=== PATIENT | female | born 1970 | race Caucasian/White ===

== ENCOUNTER 2018-05-08 15:50 | Outpatient (CLI) | payer BC ==
[~2018-05-08] VITALS: Ht 172.7 cm; Wt 129.7 kg
[2018-05-08] MEDS ORDERED: MULT-141 PO (15:52)
[2018-05-08] MEDS ORDERED: NORG1TAB14 PO (15:52)
== END 2018-05-08 15:57 | disposition home or self-care (01) ==
LOC: PREOP 15:50
PROVIDERS: ATTEND Obstetrics & Gynecology
DX: Z01.818 Encounter for other preprocedural examination (principal)

== ENCOUNTER 2018-05-11 12:54 | Day surgery (SDC) | payer BC ==
[~2018-05-11] VITALS: Ht 172.7 cm; Wt 129.7 kg
[~2018-05-11 12:54] MED LIST: MULT-141 PO; NORG1TAB14 PO
[2018-05-11] MEDS ORDERED: proPOfol 200 MG/20 ML (DIPRIVAN) VIAL IV ONE ×2 (13:20→14:30)
[2018-05-11] MEDS ORDERED: fentaNYL INJECTION 100 MCG/2 ML AMP ONE ×2 (13:20→14:47)
[2018-05-11] MEDS ORDERED: SEVOFLURANE (ULTANE) 15 ML INHAL SOLN ONE (13:21)
[2018-05-11] MEDS ORDERED: DEXAMETHASONE 10 MG/ML (DECADRON) 1 ML VIAL ONE (13:21)
[2018-05-11] MEDS ORDERED: LIDOCAINE PF 2% 5 ML (XYLOCAINE) VIAL ONE (13:21)
[2018-05-11] MEDS ORDERED: MIDAZOLAM 2 MG/2 ML (VERSED) VIAL ONE (13:21)
[2018-05-11] MEDS ORDERED: ONDANSETRON 4 MG/2 ML (SDV) Z0FRAN ONE (13:21)
[2018-05-11 13:30] VITALS: BP 137/81
[2018-05-11] MEDS ORDERED: LEVOFLOXACIN 250 MG/50 ML IVPB 50 ML ONE (13:46)
[2018-05-11 13:52] LABS: BASOPHILS % (AUTO) 0 % (0-10); EOSINOPHILS # (AUTO) 0.1 10^3/uL (0.0-0.3); EOSINOPHILS % (AUTO) 1 % (0-10); HEMATOCRIT 40 % (35-52); HEMOGLOBIN 12.6 G/DL (11.5-16.0); LYMPHOCYTES # (AUTO) 2.7 X 10^3 (1.0-4.0); LYMPHOCYTES % (AUTO) 38 % (12-44); MEAN CORPUSCULAR HEMOGLOBIN 25 PG (25-34); MEAN CORPUSCULAR HGB CONC 31 G/DL (32-36); MEAN CORPUSCULAR VOLUME 80 FL (80-99); MEAN PLATELET VOLUME 9.6 FL (7.4-10.4); MONOCYTES # (AUTO) 0.4 X 10^3 (0.0-1.0); MONOCYTES % (AUTO) 6 % (0-12); NEUTROPHILS % (AUTO) 55 % (42-75); PLATELET COUNT 331 10^3/uL (130-400); RED BLOOD COUNT 5.05 10^6/uL (4.35-5.85); WHITE BLOOD COUNT 7.2 10^3/uL (4.3-11.0)
[2018-05-11] MEDS ORDERED: LACTATED RINGERS 1,000 ML IV PRN (14:02)
[2018-05-11] MEDS ORDERED: LEVOFLOXACIN 250 MG/50 ML IVPB 50 ML IV ONE (14:15)
--- NOTE | 2018-05-11 14:18 | Progress Note-Pre Operative ---
Pre-Operative Progress Note H&P Reviewed The H&P was reviewed, patient examined and no changes noted. Date Seen by Provider: May 11, 2018 Time Seen by Provider: 14:18 Date H&P Reviewed: May 11, 2018 Time H&P Reviewed: 14:18 Pre-Operative Diagnosis: EVERETTE/menorrhagia/mass ARGELIA ENG MD May 11, 2018 2:18 pm
[2018-05-11] MEDS ORDERED: D5 LR IV SOLUTION 1,000 ML IV SCH (14:19)
--- NOTE | 2018-05-11 14:19 | Progress Note-Post Operative ---
Post-Operative Progess Note Surgeon (s)/Machine Quilt Stuffer (s) Surgeon ARGELIA ENG MD Machine Quilt Stuffer: None Pre-Operative Diagnosis EVERETTE/menorrhagia/mass Post-Operative Diagnosis Same with pathology pending Procedure & Operative Findings Date of Procedure 05/11/18 Procedure Performed/Findings Hysteroscopy with directed biopsy and D&C Anesthesia Type GETA Estimated Blood Loss Estimated blood loss (mL): Minimal Specimens/Packing Specimens Removed Directed endometrial biopsy and endometrial curettings Packing: None required ARGELIA ENG MD May 11, 2018 14:19
[2018-05-11] MEDS ORDERED: OXYC1TAB87 PO (14:21)
--- NOTE | 2018-05-11 14:23 | Discharge Instructions ---
Discharge Instructions Discharge Medications New, Converted or Re-Newed RX: RX on Chart Patient Instructions Patient Instructions: As directed Return to The Hospital For: As directed Activity & Diet Discharge Diet: No Restrictions Activity as Tolerated: No Orders-Post D/C & Referrals Follow Up Appt: Call to make follow up appt. for patient in 2 weeks. Activity: Rest for 24 hours, than as tolerated. Diet: As tolerated-Clear Liquids only if nauseated. May shower or tub bathe as desired. No driving for 24 hours, no alcoholic beverages for 24 hours, and nothing per vagina (no tampons, douching, or intercourse) for 2 weeks. Patient to return to the clinic as soon as possible for: Temperature greater than 101F, Severe Pain, Foul discharge from incision or vagina, Excessive Bleeding (more than a period). ARGELIA ENG MD May 11, 2018 2:23 pm
[2018-05-11] MEDS ORDERED: ONDANSETRON 4 MG/2 ML (SDV) Z0FRAN IVP PRN ×2 (14:30→15:15)
[2018-05-11] MEDS ORDERED: KETOROLAC 30 MG/ML VIAL IVP ONE (14:30)
[2018-05-11] MEDS ORDERED: MEPERIDINE (DEMEROL) INJ 100 MG/ML IM ONE (14:30)
[2018-05-11] MEDS ORDERED: oxyCODONE/APAP 5/325MG (PERCOCET 5) TABLET PO PRN (14:30)
[2018-05-11] MEDS ORDERED: PROMETHAZINE INJ 25 MG/ML (PHENERGAN) AMP IM ONE (14:30)
[2018-05-11] MEDS ORDERED: KETOROLAC 30 MG/ML VIAL ONE (14:50)
[2018-05-11] MEDS ORDERED: HYDROmorphone 2 MG/ML VIAL (DILAUDID) IV ONE (15:15)
[2018-05-11] MEDS ORDERED: morphine INJ 10 MG/ML 1ML (SYR OR VIAL) IVP ONE (15:15)
[2018-05-11] MEDS ORDERED: PROMETHAZINE INJ 25 MG/ML (PHENERGAN) AMP IVP ONE (15:15)
[2018-05-11 15:55] VITALS: BP 129/79
[2018-05-11 16:25] VITALS: BP 122/72
[2018-05-11 16:55] VITALS: BP 151/82
[2018-05-11 17:02] VITALS: BP 151/82
--- NOTE | 2018-05-11 19:24 | OPERATIVE REPORT ---
DATE OF SERVICE: 05/11/2018 PREOPERATIVE DIAGNOSES: Dysfunctional uterine bleeding, menorrhagia and intrauterine mass. POSTOPERATIVE DIAGNOSES: Dysfunctional uterine bleeding, menorrhagia and intrauterine mass with pathology pending. OPERATIVE PROCEDURE: Hysteroscopy with directed biopsy and D and C. OPERATIVE DESCRIPTION: With the patient in the supine position under satisfactory general anesthesia, she was prepped and draped in the usual fashion for vaginal surgery after being repositioned in the dorsal lithotomy position in the [facility]. A weighted speculum was placed in the posterior fornix of vagina; cervix was grasped anteriorly with single tooth tenaculum. The uterus was sounded to 12.25 cm with uterine sound. The cervix was then serially dilated with Cas dilators to a #20 Cas and then a #9 Hegar dilator was the final step in dilation. The hysteroscope was introduced and using LR as a distending medium, the endometrial cavity was examined. There was a polypoid mass near the left tubal ostia and a smaller one near the right. There was also what appeared to be a submucosal mass consistent with a submucosal fibroid emanating from the posterior uterine wall near the right tubal ostium as well. The polypoid tissue from each side was removed under direct vision and containers sales representative biopsies were taken from what appeared to be submucosal mass in the right posterior surface of the uterine cavity. The endometrial cavity was then sharply curettaged in all 4 quadrants to a good uterine cry. This tissue was sent to pathology, appropriately labeled for permanent section. The hysteroscope having been removed, the tenaculum was removed. There was no bleeding from the puncture site. There was minimal bleeding from the cervical os. The hysteroscope had been used to examine the endometrial cavity. After the D and C, there was no remaining abnormal tissue present and there was no significant bleeding. Sponge and needle counts were correct on completion of the procedure. A total of 900 mL of LR was used as distending medium and that much was recovered almost as well. The patient was now uneventfully awakened from her general anesthesia and transferred to recovery room in stable condition with plans for discharge home PAR. Job ID: [id number] DocumentID: [id number] Dictated Date: 05/11/2018 14:56:36 Academic Support Center Director Date: 05/11/2018 19:23:45 Dictated By: ARGELIA ENG MD
--- OUTSIDE RECORDS SUMMARY | 2018-05-12 07:52 | XMS REPORT ---
Author Author [facility] Medical Staff Organization [facility] Address [address] [place], [place] [address] Phone [phone] Care Team Providers Care Lookback Coordinator Name Role Phone SOPHIA SANTOYO APRN PP [phone] Summary purpose TRANSITION OF CARE AUTO GENERATION Chief Complaint and Reason for Visit No authorized Reason for Visit (Admitting Diagnosis) is available for this visit. Problem list No authorized problems tracked for continuity of care are available for this visit. Encounters No authorized problems tracked for encounter diagnoses are available for this visit. Medications No medications recorded for this patient visit Allergies, adverse reactions, alerts Allergen Category Ingredient Status Reaction Severity Onset Penicillins Drug Allergy Penicillins Confirmed or Verified Immunizations No immunizations recorded for this patient visit Relevant diagnostic tests and/or laboratory data No authorized results are available for this patient visit History of procedures No procedures recorded for this patient visit. Functional status No functional or cognitive status observations are available for this visit. Vital signs No authorized vital signs are available for this visit. Social history No Social History or smoking status observations were recorded for this visit. ( Unknown if ever smoked.) Treatment Plan No treatment plan text is available for this visit. Hospital discharge instructions No discharge instruction text is available for this visit.
--- OUTSIDE RECORDS SUMMARY | 2018-05-12 07:52 | XMS REPORT ---
Author [facility] [employer] [facility] Medical Staff Organization [facility] Address [address], [place] [address] Phone [phone] Care Team Providers Care Pastoral Counselor Name Role Phone SOPHIA ASNTOYO APRN PP [phone] Summary purpose TRANSITION OF CARE AUTO GENERATION [...] this patient visit Allergies, adverse reactions, alerts No allergy information is available for this patient. Immunizations No immunizations recorded for this patient visit Relevant diagnostic tests and/or laboratory data RESULTS Routine Urinalysis [id number]:26:00 Result Normal Range Units Color YELLOW Clarity Cloudy Specific [place] 1.008 pH 6.0 4.5-8.0 Glucose NEGATIVE Bilirubin NEGATIVE Ketones NEGATIVE Protein NEGATIVE Urobilinogen 0.2 0-0.2 E.U./dL Nitrites NEGATIVE Blood TRACE Leukocytes NEGATIVE WBCs 0-5 RBCs No RBC's Seen. Squamous Epithelial 1+ Bacteria Rare Amount Body Fluid :26:00 Result Normal Range Units pH 6.0 4.5-8.0 History of procedures No procedures recorded for [...]
--- OUTSIDE RECORDS SUMMARY | 2018-05-12 07:52 | XMS REPORT ---
Author [facility] [employer] [facility] Medical Staff Organization [facility] Address [address], [place] [address] Phone [phone] Care Team Providers Care Habilitation Training Specialist Name Role Phone SOPHIA SANTOYO APRN PP [phone] Summary purpose TRANSITION OF CARE AUTO GENERATION [...] tests and/or laboratory data RESULTS Routine Urinalysis [id number]:30:00 Result Normal Range Units Color YELLOW Clarity Hazy Specific [place] 1.010 1.003-1.035 pH 6.0 4.5-8.0 Glucose NEGATIVE Bilirubin NEGATIVE Ketones NEGATIVE Protein NEGATIVE Urobilinogen 0.2 0-0.2 E.U./dL Nitrites NEGATIVE Blood TRACE Leukocytes 1+ WBCs 5-10 RBCs 0-5 Squamous Epithelial 2+ Bacteria Occasional Chemistry [id number]:18:00 Result Normal Range Units Sodium 137 134-145 mEq/l Potassium 4.0 3.5-5.1 mEq/l Chloride 105 98-107 mEq/l CO2 24.9 22-28 mEq/l Glucose 94 70-105 mg/dl BUN 11 7-18 mg/dl Creatinine 0.92 0.6-1.0 mg/dl Triglycerides H 168 35-160 mg/dl Cholesterol 183 120-200 mg/dl HDL Cholesterol 42 39-96 mg/dl VLDL Cholesterol 34 5-40 mg/dl LDL Cholesterol H 126 30-100 mg/dl Calcium L 8.1 8.4-10.2 mg/dl TP - Total Protein 6.9 6.0-8.3 g/dl Albumin L 3.0 3.5-5 g/dl Bilirubin - Total 0.3 0.1-1.0 mg/dl AST 20 10-42 IU/L ALT 20 12-65 IU/L ALP H 74 25-72 IU/L Osmolality L 273.0 280-300 mOsm/L Albumin/Globulin Ratio 0.8 0-8 Anion GAP L 7.1 8-16 BUN/Creatinine Ratio 12.0 10-20 Estimated GFR 66 >=60 mL/min/1.7 Hematology :18:00 Result Normal Range Units WBC 6.9 4.8-10.8 103/uL RBC 4.6 4.2-5.4 106/uL HGB L 11.3 12.0-16.0 g/dl HCT 37.3 36.9-47.0 % MCV L 80.9 81-99 FL MCH L 24.5 27-31 pg MCHC L 30.3 33-37 g/dl RDW 14.0 11.5-15.5 % PLT 304 130-400 103/uL MPV 10.2 7.3-10.4 FL Body Fluid :30:00 Result Normal Range Units pH 6.0 4.5-8.0 Radiology Results :18:00 Result Normal Range Units MPV 10.2 7.3-10.4 FL History of procedures No procedures recorded for [...]
--- OUTSIDE RECORDS SUMMARY | 2018-05-12 07:53 | XMS REPORT ---
Author [facility] [employer] [facility] Medical Staff Organization [facility] Address [address], [place] [address] Phone [phone] Care Team Providers Care Traffic Line Painter Name Role Phone SOPHIA SANTOYO APRN PP [phone] Summary purpose TRANSITION OF CARE AUTO GENERATION [...] tests and/or laboratory data RESULTS Routine Urinalysis [id number]:00:00 Result Normal Range Units Color YELLOW Clarity Hazy Specific [place] 1.024 Refractometer Result pH 6.0 4.5-8.0 Glucose NEGATIVE Bilirubin NEGATIVE Ketones NEGATIVE Protein NEGATIVE Urobilinogen 0.2 0-0.2 E.U./dL Nitrites NEGATIVE Blood TRACE Leukocytes NEGATIVE WBCs 0-5 RBCs 0-5 Squamous Epithelial 2+ Bacteria 1+ Mucous 3+ Chemistry [id number]:00:00 Result Normal Range Units Sodium 142 134-145 mEq/l Potassium 4.1 3.5-5.1 mEq/l Chloride 105 98-107 mEq/l CO2 26.7 22-28 mEq/l Glucose 94 70-105 mg/dl BUN 10 7-18 mg/dl Creatinine 0.92 0.6-1.0 mg/dl Triglycerides H 210 35-160 mg/dl Cholesterol 169 120-200 mg/dl HDL Cholesterol L 37 39-96 mg/dl VLDL Cholesterol H 42 5-40 mg/dl LDL Cholesterol H 110 30-100 mg/dl Calcium 8.6 8.4-10.2 mg/dl TP - Total Protein 7.0 6.0-8.3 g/dl Albumin L 3.2 3.5-5 g/dl Bilirubin - Total 0.5 0.1-1.0 mg/dl AST 14 10-42 IU/L ALT 16 12-65 IU/L ALP H 80 25-72 IU/L Osmolality 281.9 280-300 mOsm/L Albumin/Globulin Ratio 0.8 0-8 Anion GAP 10.3 8-16 BUN/Creatinine Ratio 10.9 10-20 Estimated GFR 67 >=60 mL/min/1.7 Hematology :00:00 Result Normal Range Units WBC 6.5 4.8-10.8 103/uL RBC 4.9 4.2-5.4 106/uL HGB L 11.6 12.0-16.0 g/dl HCT 37.4 36.9-47.0 % MCV L 76.6 81-99 FL MCH L 23.8 27-31 pg MCHC L 31.0 33-37 g/dl RDW 14.9 11.5-15.5 % PLT 324 130-400 103/uL MPV 10.4 7.3-10.4 FL Neutro % 63.8 40-70 % Lymph % 26.8 20-40 % Moffat % 7.4 0-10.0 % Eos % 1.5 0-7.0 % Baso % 0.5 0-2 % Neutro # 4.1 1.5-7.5 103/uL Lymph # 1.7 0.9-4.0 103/uL Moffat # 0.5 0-0.8 103/uL Eos # 0.1 0-0.6 103/uL Baso # 0.0 0-0.1 103/uL Body Fluid :00:00 Result Normal Range Units pH 6.0 4.5-8.0 Thyroid Testing :00:00 Result Normal Range Units TSH 2.71 0.36-3.74 uIU/mL Free T4 1.00 0.78-1.34 ng/dl Radiology Results :00:00 Result Normal Range Units MPV 10.4 7.3-10.4 FL History of procedures No procedures [...]
--- OUTSIDE RECORDS SUMMARY | 2018-05-12 07:53 | XMS REPORT ---
Author Author [facility] [facility] Medical Staff Organization [facility] [employer] [facility] Address [address], [place] [address] Phone [phone] Care Team Providers Care Regional Forester Name Role Phone SOPHIA SANTOYO APRN PP [phone] Summary purpose TRANSITION OF CARE AUTO GENERATION Chief Complaint and Reason for Visit Admit Diagnosis 1 HEMATURIA NOS Problem list No authorized problems tracked for [...] tests and/or laboratory data RESULTS Routine Urinalysis [id number]:45:00 Result Normal Range Units Color YELLOW Clarity Cloudy Specific [place] 1.020 1.003-1.035 pH 6.5 4.5-8.0 Glucose NEGATIVE Bilirubin NEGATIVE Ketones NEGATIVE Protein NEGATIVE Urobilinogen 0.2 0-0.2 E.U./dL Nitrites POSITIVE Blood 3+ Leukocytes NEGATIVE WBCs 20-30 RBCs 10-20 Squamous Epithelial 4+ Bacteria 4+ Routine Cultures [id number]:08:00 Urine Culture Plate Date and Time 12/25/2014 19:08 SourceURINE CULTURE REPORT >100,000 colonies/ml Gram Negative Rods ID & Sensitivity to follow Release Date/Time: 12/26/2014 07:23 ORGID #1:>100,000 colonies/ml ESCHERICHIA COLI Release Date/Time: 12/27/2014 07:39 Sensitivity #1: ESCCOL AMPICILLIN <=8S AMOX CLAV<=8/4 S AZTREONAM<=8S CEFTRIAXONE<=8S CEFTAZIDIME<=1S CEFOTAXIME <=2S CEFOXITIN<=8S CEFAZOLIN<=8S CIPROFLOXACIN<=1S CEFEPIME <=8S CEFUROXIME <=4S ERTAPENEM<=2S NITROFURANTOIN <=32 S GENTAMICIN <=4S AMPICILLIN SULBACTAM <=8/4 S IMIPENEM <=4S LEVOFLOXACIN <=2S MEROPENEM<=4S TRIMETHSULFA <=2/38S TETRACYCLINE <=4S PIPTAZO<=16 S Body Fluid [id number]:45:00 Result Normal Range Units pH 6.5 4.5-8.0 History of procedures Procedure Code Code Type Description Date Performed Performing Physician 46319 CPT-4 URINALYSIS, AUTO W/SCOPE 12-25-2014 SOPHIA SANTOYO 49966 CPT-4 URINE CULTURE/COLONY COUNT 12-25-2014 SOPHIA SANTOYO 76270 CPT-4 CULTURE AEROBIC IDENTIFY 12-25-2014 SOPHIA SANTOYO 60202 CPT-4 MICROBE SUSCEPTIBLE, DEMETRA 12-25-2014 SOPHIA SANTOYO Functional status No functional or cognitive status [...]
--- OUTSIDE RECORDS SUMMARY | 2018-05-12 07:53 | XMS REPORT ---
Author Author [facility] Medical Staff Organization [facility] [employer] [facility] Address [address], [place] [address] Phone [phone] Care Team Providers Care Labor And Delivery Nurse Name Role Phone SOPHIA SANTOYO APRN PP [phone] Summary purpose TRANSITION OF CARE AUTO GENERATION [...] recorded for this patient visit. Functional status Functional Status Finding Observation Time Abdomen Appearance obese : Abdomen soft : Bowel Sounds present : Quality sym/unlabored : Cough absent : Secretions no : Breath Sounds RUL clear : Breath Sounds RML clear : Breath Sounds RLL clear :00 Breath Sounds MARY clear : Breath Sounds LLL clear : Airway natural : Oxygen no [id number]:00 Temp >100.4 no : Temp <96.8 no : Chills with rigors no : HR > 90bpm no :00 Respirations > 20 no : Systolic <90 no [id number]:00 headache stiff neck no Nursing Note Discharge instructions given to pt. She verbalized understanding. Pt amb to car with s.o. Vital signs Type Value Date Respiration Rate 18breaths per minute Pulse 89beats per minute Oxygen Saturation 100% : BP Systolic 111mmHg BP Diastolic 73mmHg Temperature 99.7F Social history No Social History or smoking status observations were recorded for this visit. ( Unknown if ever smoked.) Treatment Plan No treatment plan text is available for this visit. Hospital discharge instructions Dismissal Condition fair Disposition on DC home DC Inst/Educ Give yes Med/Side Effects Rev yes Flu Vac none
--- OUTSIDE RECORDS SUMMARY | 2018-05-12 07:53 | XMS REPORT ---
Author Author [facility] [facility] Medical Staff Organization [facility] [employer] [facility] Address [address] [place], [place] [address] Phone [phone] Summary purpose TRANSITION OF CARE AUTO GENERATION [...] Relevant diagnostic tests and/or laboratory data RESULTS Radiology Results [id number]:11:00 Bilateral Screen Digital Mammo PACs Image DATE OF EXAM: Jul 23 2015 [facility] 0845-BILAT SCREEN DIG MAMMO : RADIOLOGY REPORT DATE OF SERVICE: 07/23/15 HISTORY:Screening exam. BILATERAL SCREENING DIGITAL MAMMOGRAMOGRAPY WITH iCAD SECONDLOOK 7.2-H+ 0750 HOURS There are a few scattered fibroglandular densities. There are no masses or grouped microcalculi. There is no distortion or asymmetry.The appearance is stable when compared with 07/22/2014 and 06/28/2013. IMPRESSION:Negative mammograms BI-RADS I. MD OLIVER Aranda/elke 07/27/2015 16:54:00 / 07/27/2015 17:18:13 cc:Sophia Zuñiga APRN This document has been electronically Signed by: On: DATE OF EXAM: Jul 23 2015 [facility] 0845-BILAT SCREEN DIG MAMMO : RADIOLOGY REPORT DATE OF SERVICE: 07/23/15 HISTORY:Screening exam. BILATERAL SCREENING DIGITAL MAMMOGRAMOGRAPY WITH iCAD SECONDLOOK 7.2-H+ 0750 HOURS There are a few scattered fibroglandular densities. There are no masses or grouped microcalculi. There is no distortion or asymmetry.The appearance is stable when compared with 07/22/2014 and 06/28/2013. IMPRESSION:Negative mammograms BI-RADS I. MD OLIVER Aranda/elke 07/27/2015 16:54:00 / 07/27/2015 17:18:13 cc:Sophia Zuñiga APRN This document has been electronically Signed by: YENY STOUT MD On: Jul 28 2015 12:11P Result Amended on 2015-07-28 at 12:11:58. Previous status was [place]. History of procedures Procedure Code Code Type Description Date Performed Performing Physician 31601 CPT-4 COMP SCREEN MAMMOGRAM ADD-ON 07-23-2015 SOPHIA ZUÑIGA 38375 CPT-4 MAMMOGRAM, SCREENING 07-23-2015 SOPHIA ZUÑIGA Functional status No functional or cognitive status [...]
--- OUTSIDE RECORDS SUMMARY | 2018-05-12 07:53 | XMS REPORT ---
Author Author [facility] [employer] [facility] Medical Staff Organization [facility] Address [address], [place] [address] Phone [phone] Care Team Providers Care Broadcast Producer Name Role Phone SOPHIA SANTOYO APRN PP [phone] Summary purpose TRANSITION OF CARE AUTO GENERATION [...] tests and/or laboratory data RESULTS Routine Urinalysis [id number]:45:00 Result Normal Range Units Color YELLOW Clarity Cloudy Specific [place] 1.020 1.003-1.035 pH 6.5 4.5-8.0 Glucose NEGATIVE Bilirubin NEGATIVE Ketones NEGATIVE Protein NEGATIVE Urobilinogen 0.2 0-0.2 E.U./dL Nitrites POSITIVE Blood 3+ Leukocytes NEGATIVE WBCs 20-30 RBCs 10-20 Squamous Epithelial 4+ Bacteria 4+ Body Fluid [id number]:45:00 Result Normal Range Units pH 6.5 4.5-8.0 History of procedures No procedures recorded [...]
--- OUTSIDE RECORDS SUMMARY | 2018-05-12 07:53 | XMS REPORT ---
Author Author [facility] Medical Staff Organization [facility] [employer] [facility] Address [address] [place], [place] [address] Phone [phone] Care Team Providers Care Generation Manager Name Role Phone NATANAEL ARCEO, SOPHIA PP [phone] Summary purpose TRANSITION OF CARE AUTO GENERATION [...] tests and/or laboratory data RESULTS Radiology Results [id number]:53:00 LUMBAR SPINE XRAY - 5V PACs Image DATE OF EXAM: 2015 RAD 1050-LUMBAR SPINE XRAY-5 VIEW : RADIOLOGY REPORT DATE OF SERVICE:10/05/15 HISTORY:Low back pain with right radiculopathy. LUMBAR SPINE 5 VIEWS 1647 HOURS The lumbar vertebrae are normal in height and alignment. There are no fractures. There is no spondylolysis or spondylolisthesis. There is mild disc narrowing with osteophyte formation at L3-L4. Minimal degenerative facet change is present at L5-S1. IMPRESSION:Mild midlumbar degenerative disc change and lower lumbar facet arthrosis. MD OLIVER Aranda/pb10/05/2015 18:59:00 / 10/05/2015 21:30:09 cc:Sophia Santoyo APRN This document has been electronically Signed by: On: DATE OF EXAM: 2015 RAD 1050-LUMBAR SPINE XRAY-5 VIEW : RADIOLOGY REPORT DATE OF SERVICE:10/05/15 HISTORY:Low back pain with right radiculopathy. LUMBAR SPINE 5 VIEWS 1647 HOURS The lumbar vertebrae are normal in height and alignment. There are no fractures. There is no spondylolysis or spondylolisthesis. There is mild disc narrowing with osteophyte formation at L3-L4. Minimal degenerative facet change is present at L5-S1. IMPRESSION:Mild midlumbar degenerative disc change and lower lumbar facet arthrosis. Momo Weathers MD MWD/pb10/05/2015 18:59:00 / 10/05/2015 21:30:09 cc:Sophia Santoyo APRN This document has been electronically Signed by: MOMO WEATHERS MD On: 20159:[id number] Result Amended on 2015-10-06 at 09:53:37. Previous status was [place]. History of procedures Procedure Code Code Type Description Date Performed Performing Physician 53807 CPT-4 X-RAY EXAM L-2 SPINE 4/>VWS 10-05-2015 SOPHIA SANTOYO Functional status No functional or [...]
--- OUTSIDE RECORDS SUMMARY | 2018-05-12 07:53 | XMS REPORT ---
Author Author [facility] Medical Staff Organization [facility] [employer] [facility] Address [address], [place] [address] Phone [phone] Care Team Providers Care Professor Of Kinesiology Name Role Phone SOPHIA SANTOYO APRN PP [phone] Summary purpose TRANSITION OF CARE AUTO GENERATION Chief Complaint and Reason for Visit Admit Diagnosis 1 HYPERLIPIDEMIA NEC/NOS Problem list No authorized problems tracked for [...] tests and/or laboratory data RESULTS Routine Urinalysis [id number]:00:00 Result Normal Range Units Color YELLOW Clarity Hazy Specific [place] 1.024 Refractometer Result pH 6.0 4.5-8.0 Glucose NEGATIVE Bilirubin NEGATIVE Ketones NEGATIVE Protein NEGATIVE Urobilinogen 0.2 0-0.2 E.U./dL Nitrites NEGATIVE Blood TRACE Leukocytes NEGATIVE WBCs 0-5 RBCs 0-5 Squamous Epithelial 2+ Bacteria 1+ Mucous 3+ Chemistry [id number]:00:00 Result Normal Range Units Sodium 142 134-145 [...] 40-70 % Lymph % 26.8 20-40 % Hart % 7.4 0-10.0 % Eos % 1.5 0-7.0 % Baso % 0.5 0-2 % Neutro # 4.1 1.5-7.5 103/uL Lymph # 1.7 0.9-4.0 103/uL Hart # 0.5 0-0.8 103/uL Eos # 0.1 0-0.6 103/uL Baso # 0.0 0-0.1 103/uL Body Fluid [id number]:00:00 Result Normal Range Units pH 6.0 4.5-8.0 Thyroid Testing :00:00 Result Normal Range Units TSH 2.71 0.36-3.74 uIU/mL Free T4 1.00 0.78-1.34 ng/dl Radiology Results :00:00 Result Normal Range Units MPV 10.4 7.3-10.4 FL History of procedures Procedure Code Code Type Description Date Performed Performing Physician 69439 CPT-4 LIPID PANEL 12-31-2014 SOPHIA SANTOYO 65928 CPT-4 COMPLETE CBC W/AUTO DIFF WBC 12-31-2014 SOPHIA SANTOYO 47593 CPT-4 COMPREHEN METABOLIC PANEL 12-31-2014 SOPHIA SANTOYO 62630 CPT-4 ASSAY OF FREE THYROXINE 12-31-2014 SOPHIA SANTOYO 95300 CPT-4 ASSAY THYROID STIM HORMONE 12-31-2014 SOPHIA SANTOYO 77519 CPT-4 URINALYSIS, AUTO W/SCOPE 12-31-2014 SOPHIA SANTOYO Functional status No functional or [...]
--- OUTSIDE RECORDS SUMMARY | 2018-05-12 07:53 | XMS REPORT ---
Author Author [facility] [place] [facility] Medical Staff Organization [facility] Address [address], [place] [address] Phone [phone] Care Team Providers Care Manager Finance Name Role Phone SOPHIA SANTOYO APRN PP [phone] Summary purpose TRANSITION OF CARE AUTO GENERATION [...] tests and/or laboratory data RESULTS Routine Urinalysis [id number]:26:00 Result Normal Range Units Color YELLOW Clarity Cloudy Specific [place] 1.008 pH 6.0 4.5-8.0 Glucose NEGATIVE Bilirubin NEGATIVE Ketones NEGATIVE Protein NEGATIVE Urobilinogen 0.2 0-0.2 E.U./dL Nitrites NEGATIVE Blood TRACE Leukocytes NEGATIVE WBCs 0-5 RBCs No RBC's Seen. Squamous Epithelial 1+ Bacteria Rare Amount Routine Cultures [id number]:26:00 Result Normal Range Units Cervical/ Vaginal/ Urethral See Comments Plate Date and Time 09/21/2015 16:26 SourceVAGINAL CULTURE REPORT Small Amount Gram Positive Cocci ID to follow. Release Date/Time: 09/22/2015 12:05 GRAM STAIN 1+ Gram Positive [place] 0-5 Squamous Epithelial Cells Release Date/Time: 09/22/2015 13:32 ORGID #1:Small Amount STREPTOCOCCUS AGALACTIAE - (GROUP B) Release Date/Time: 09/22/2015 12:05 Body Fluid [id number]:26:00 Result Normal Range Units pH 6.0 4.5-8.0 Reference Lab (Sendout) [id number]:26:00 Result Normal Range Units Trichomonas NOT DETECTED NOT DETECTED Gardnerella NOT DETECTED NOT DETECTED Shelley NOT DETECTED NOT DETECTED TEST PERFORMED AT: [facility] [address] [place] [address] YENNI MAZA DO,MPH History of procedures Procedure Code Code Type Description Date Performed Performing Physician 23337 CPT-4 SMEAR GRAM STAIN 09-21-2015 SOPHIA SANTOYO 12808 CPT-4 CULTURE OTHR SPECIMN AEROBIC 09-21-2015 SOPHIA SANTOYO 69207 CPT-4 SHELLEY DNA DIR PROBE 09-21-2015 SOPHIA SANTOYO 67779 CPT-4 ESPINOSA VAG DNA DIR PROBE 09-21-2015 SOPHIA SANTOYO 36161 CPT-4 TRICHOMONAS VAGIN DIR PROBE 09-21-2015 SOPHIA SANTOYO 23865 CPT-4 URINALYSIS AUTO W/SCOPE 09-21-2015 SOPHIA SANTOYO 43305 CPT-4 CULTURE TYPE IMMUNOLOGIC 09-21-2015 SOPHIA SANTOYO Functional status No functional or [...]
--- OUTSIDE RECORDS SUMMARY | 2018-05-12 07:53 | XMS REPORT ---
Author Author [facility] Medical Staff Organization [facility] Address [address], [place] [address] Phone [phone] Care Team Providers Care Interior Systems Carpenter Name Role Phone SOPHIA SANTOYO APRN PP [phone] Summary purpose TRANSITION OF CARE AUTO GENERATION [...] tests and/or laboratory data RESULTS Routine Urinalysis [id number]:30:00 Result Normal Range Units Color YELLOW Clarity Hazy Specific [place] 1.010 1.003-1.035 pH 6.0 4.5-8.0 Glucose NEGATIVE Bilirubin NEGATIVE Ketones NEGATIVE Protein NEGATIVE Urobilinogen 0.2 0-0.2 E.U./dL Nitrites NEGATIVE Blood TRACE Leukocytes 1+ WBCs 5-10 RBCs 0-5 Squamous Epithelial 2+ Bacteria Occasional Routine Cultures [id number]:23:00 Urine Culture Plate Date and Time 02/08/2016 12:23 SourceURINE CULTURE REPORT 40,000 colonies/ml Mixed Gram Pos [place] Release Date/Time: 02/09/2016 07:08 CULTURE REPORT >100,000 colonies/ml Mixed Gram Pos [facility] Release Date/Time: 02/10/2016 07:46 Chemistry [id number]:18:00 Result Normal Range Units Sodium 137 134-145 [...] 10-20 Estimated GFR 66 >=60 mL/min/1.7 Hematology [id number]:18:00 Result Normal Range Units WBC 6.9 4.8-10.8 103/uL RBC 4.6 4.2-5.4 106/uL HGB L 11.3 12.0-16.0 g/dl HCT 37.3 36.9-47.0 % MCV L 80.9 81-99 FL MCH L 24.5 27-31 pg MCHC L 30.3 33-37 g/dl RDW 14.0 11.5-15.5 % PLT 304 130-400 103/uL MPV 10.2 7.3-10.4 FL Body Fluid [id number]:30:00 Result Normal Range Units pH 6.0 4.5-8.0 Radiology Results [id number]:18:00 Result Normal Range Units MPV 10.2 7.3-10.4 FL History of procedures Procedure Code Code Type Description Date Performed Performing Physician 29971 CPT-4 LIPID PANEL 02-08-2016 SOPHIA SANTOYO 73633 CPT-4 COMPREHEN METABOLIC PANEL 02-08-2016 SOPHIA SANTOYO 25300 CPT-4 COMPLETE CBC, AUTOMATED 02-08-2016 SOPHIA SANTOYO 91227 CPT-4 URINALYSIS, AUTO W/SCOPE 02-08-2016 SOPHIA SANTOYO 92523 CPT-4 URINE CULTURE/COLONY COUNT 02-08-2016 SOPHIA SANTOYO Functional status No functional or [...]
--- OUTSIDE RECORDS SUMMARY | 2018-05-12 07:53 | XMS REPORT ---
Author Author [facility] Medical Staff Organization [facility] Address [address], [place] [address] Phone [phone] Care Team Providers Care Sports Team Manager Name Role Phone SOPHIA SANTOYO APRN PP [phone] Summary purpose TRANSITION OF CARE AUTO GENERATION [...] for this patient visit History of procedures Procedure Code Code Type Description Date Performed Performing Physician 49998 CPT-4 EMERGENCY DEPT VISIT 09-27-2015 SUPA FLORES 52280 CPT-4 EMERGENCY DEPT VISIT 09-27-2015 SUPA FLORES Functional status Functional Status Finding Observation Time Abdomen Appearance obese 36-00-003132:00 Abdomen soft : Bowel Sounds present 76-36-222731: Quality sym/unlabored : Cough absent : Secretions no [id number]:00 Breath Sounds RUL clear : Breath Sounds RML clear :00 Breath Sounds RLL clear :00 Breath Sounds MARY clear :00 Breath Sounds LLL clear [id number]: Airway natural [id number]:00 Oxygen no [id number]:00 Temp >100.4 no : Temp <96.8 no 91-32-619869:00 Chills with rigors no : HR > 90bpm no Respirations > 20 no : Systolic <90 no : headache stiff neck no Nursing Note Discharge instructions given to pt. She verbalized understanding. Pt amb to car with s.o. Vital signs Type Value Date Respiration Rate 18breaths per minute Pulse 89beats per minute Oxygen Saturation 100% : BP Systolic 111mmHg :00 BP Diastolic 73mmHg : Temperature 99.7F : Social history No Social History or smoking status observations were recorded for this visit. ( Unknown if ever smoked.) Treatment Plan No treatment plan text is available for this visit. Hospital discharge instructions Dismissal Condition fair Disposition on DC home DC Inst/Educ Give yes Med/Side Effects Rev yes Flu Vac none
--- OUTSIDE RECORDS SUMMARY | 2018-05-12 07:54 | XMS REPORT | Clinical Summary ---
Author Author Admin, MINO Organization [facility] Address Unknown Phone Unavailable Allergies, Adverse Reactions, Alerts Allergy Name Reaction Description Start Date Severity Status Provider PENICILLIN Critical Active Jimena ROWLEY Conditions or Problems Problem Name Problem Code Onset Date Status Entry Date Provider Comment Standard Description Annotate SINUSITIS 473.9 Inactive Eber Parish MD Unspecified sinusitis (chronic) HYPERLIPIDEMIA 272.4 Active Jessica Crandall RN Other and unspecified hyperlipidemia SINUSITIS, ACUTE 461.9 Resolved Eber Parish MD Acute sinusitis, unspecified OBESITY 278.00 Active Eber Parish MD Obesity , unspecified BREAST PAIN 611.71 Active Eber Parish MD Mastodynia SNORING 786.09 Active Eber Parish MD Other dyspnea and respiratory abnormality HEALTH SCREENING V70.0 Active Eber Parish MD Routine general medical examination at a health care facility OBSTRUCTIVE SLEEP APNEA 327.23 Active Eber Parish MD Obstructive sleep apnea (adult) (pediatric) SINUSITIS 473.9 Resolved Eber Parish MD Unspecified sinusitis (chronic) Cellulitis 682.9 Resolved Eber Parish MD Cellulitis and abscess of unspecified sites Chest pain 786.50 Active Eber Parish MD Unspecified chest pain Diarrhea 787.91 Active Eber Parish MD Diarrhea SINUSITIS ICD-473.9 Inactive Eber Parish MD SINUSITIS, ACUTE ICD-461.9 Inactive Eber Parish MD SINUSITIS ICD-473.9 Inactive Eber Parish MD Cellulitis ICD-682.9 Inactive Eber Parish MD Medication List Medication Instructions Start Date Stop Date Generic Name NDC Status Provider Patient Instruction CLARITIN 10 MG TABS Take one by mouth daily as needed LORATADINE 89063056272 Active Eber Parish MD Active MINOCYCLINE HCL 100 MG CAP 1 twice a day MINOCYCLINE HCL 15475882116 No Longer Active Eber Parish MD Active CITRACAL MAXIMUM 315-250 MG-UNIT TABS one tablet daily CALCIUM CITRATE- VITAMIN D 09327495700 Active Eber Parish MD Active CENTRUM ULTRA WOMENS TABS one tablet daily MULTIPLE VITAMINS-MINERALS 06321638924 Active Eber Parish MD Active ZITHROMAX 250 MG TAB 2 po today, then 1 po q days 2-5 AZITHROMYCIN 00970254929 No Longer Active Gregory Lechuga MD Active ADVIL CONGESTION RELIEF 10-200 MG TABS Take 1 tablet every 4 hours PRN PHENYLEPHRINE-IBUPROFEN 56299262091 Active Gregory Lechuga MD Active TRANSDERM-SCOP 1.5 MG PT72 apply one patch to clean skin every 72 hours SCOPOLAMINE BASE 56771989385 No Longer Active Eber Parish MD Active SULFAMETHOXAZOLE-TMP DS 800-160 MG TABS Take one (1) tablet by mouth twice a day SULFAMETHOXAZOLE-TRIMETHOPRIM 08881673284 No Longer Active Jimena ROWLEY Active BACTRIM DS 800-160 MG TAB 1 tab by mouth twice daily TRIMETHOPRIM-SULFAMETHOXAZOLE 36382806761 No Longer Active Jessica Karley RN Active GUAIFENESIN-CODEINE 100-10 MG/5ML SYRP 1 tsp PO q6h PRN cough GUAIFENESIN-CODEINE 46908335806 No Longer Active Jessica Lock RN Active TYLENOL 8 HOUR 650 MG CR-TABS ONE TABLET THREE TIMES A DAY ACETAMINOPHEN 34839850961 No Longer Active Eber Parish MD Active CLARITIN 10 MG CAPS ONE CAPSULE DAILY LORATADINE 80923687472 No Longer Active Eber Parish MD Active CLARITIN 10 MG CAPS ONE CAPSULE DAILY CLARITIN 10 MG CAPS LORATADINE Inactive TYLENOL 8 HOUR 650 MG CR-TABS ONE TABLET THREE TIMES A DAY TYLENOL 8 HOUR 650 MG CR-TABS ACETAMINOPHEN Inactive GUAIFENESIN-CODEINE 100-10 MG/5ML SYRP 1 tsp PO q6h PRN cough GUAIFENESIN-CODEINE 100-10 MG/5ML SYRP 491435 GUAIFENESIN-CODEINE Inactive BACTRIM DS 800-160 MG TAB 1 tab by mouth twice daily BACTRIM DS 800-160 MG TAB TRIMETHOPRIM-SULFAMETHOXAZOLE Inactive SULFAMETHOXAZOLE-TMP DS 800-160 MG TABS Take one (1) tablet by mouth twice a day SULFAMETHOXAZOLE-TMP DS 800-160 MG TABS SULFAMETHOXAZOLE-TRIMETHOPRIM Inactive TRANSDERM-SCOP 1.5 MG PT72 apply one patch to clean skin every 72 hours TRANSDERM-SCOP 1.5 MG PT72 SCOPOLAMINE BASE Inactive MINOCYCLINE HCL 100 MG CAP 1 twice a day MINOCYCLINE HCL 100 MG CAP 777454 MINOCYCLINE HCL Inactive ZITHROMAX 250 MG TAB 2 po today, then 1 po q days 2-5 ZITHROMAX 250 MG TAB 9683246 AZITHROMYCIN Inactive Advance Directives Directive Description Start Date PERMISSION TO SHARE Vital Signs Date Name Value Unit Range Description blood pressure, diastolic - 8462-4 80 mm[Hg] BP hunter blood pressure, systolic - 8480-6 122 mm[Hg] BP sys height E&M - 8302-2 68 [in_us] Bdy height pulse rate E&M - 8867-4 88 /min Heart rate temperature E&M 97.8 [degF] Body temperature weight E&M - 3141-9 283.8 [lb_av] Weight Measured blood pressure, diastolic - 8462-4 82 mm[Hg] BP hunter blood pressure, systolic - 8480-6 118 mm[Hg] BP sys height E&M - 8302-2 68.0 [in_us] Bdy height pulse rate E&M - 8867-4 101 /min Heart rate temperature E&M 97.6 [degF] Body temperature weight E&M - 3141-9 282 [lb_av] Weight Measured Encounters Code Encounter Date Provider Facility CPT-98211 Level 3 Est. Patient 14:30:41 POLITICAL CONSULTANT Eber Parish MD [facility] CPT-33715 Level 3 Est. Patient 10:47:41 POLITICAL CONSULTANT Gregory Lechuga MD [facility] CPT-68367 Level 3 Est. Patient 15:24:42 CDT Eber Parish MD [facility] CPT-05479 Level 4 Est. Patient 10:49:34 CDT Eber Parish MD [facility] CPT-60997 Level 3 Est. Patient 08:49:14 POLITICAL CONSULTANT Dani QUINTANILLA [facility] CPT-42463 Level 3 Est. Patient 17:37:54 CDT Eber Parish MD [facility] Procedures Code Procedure Name Date Entry Date Standard Description CPT-13683 EKG Trac and Interp 14:33:45 CDT CPT-14952 Chest 2V Frontal and Lat 14:33:45 CDT
--- OUTSIDE RECORDS SUMMARY | 2018-05-12 07:54 | XMS REPORT | Clinical Summary ---
Author Author Admin, MINO Organization [facility] Address Unknown Phone Unavailable Allergies, Adverse Reactions, Alerts Allergy Name Reaction Description Start Date Severity Status Provider PENICILLIN Critical Active Jimena ROWLEY Conditions or Problems Problem Name Problem Code Onset Date Status Entry Date Provider Comment Standard Description Annotate SINUSITIS 473.9 Inactive Eber Parish MD Unspecified sinusitis (chronic) HYPERLIPIDEMIA 272.4 Active Jesisca Crandall RN Other and unspecified hyperlipidemia SINUSITIS, [...] one by mouth daily as needed LORATADINE 93983124788 Active Eber Parish MD Active MINOCYCLINE HCL 100 MG CAP 1 twice a day MINOCYCLINE HCL 92002806992 No Longer Active Eber Parish MD Active CITRACAL MAXIMUM 315-250 MG-UNIT TABS one tablet daily CALCIUM CITRATE- VITAMIN D 58630879426 Active Eber Parish MD Active CENTRUM ULTRA WOMENS TABS one tablet daily MULTIPLE VITAMINS-MINERALS 85637328304 Active Eber Parish MD Active ZITHROMAX 250 MG TAB 2 po today, then 1 po q days 2-5 AZITHROMYCIN 78526805096 No Longer Active Gregory Lechuga MD Active ADVIL CONGESTION RELIEF 10-200 MG TABS Take 1 tablet every 4 hours PRN PHENYLEPHRINE-IBUPROFEN 88907780243 Active Gregory Lechuga MD Active TRANSDERM-SCOP 1.5 MG PT72 apply one patch to clean skin every 72 hours SCOPOLAMINE BASE 87610243449 No Longer Active Eber Parish MD Active SULFAMETHOXAZOLE-TMP DS 800-160 MG TABS Take one (1) tablet by mouth twice a day SULFAMETHOXAZOLE-TRIMETHOPRIM 93323978641 No Longer Active Jimena ROWLEY Active BACTRIM DS 800-160 MG TAB 1 tab by mouth twice daily TRIMETHOPRIM-SULFAMETHOXAZOLE 63639651102 No Longer Active Jessica Karley RN Active GUAIFENESIN-CODEINE 100-10 MG/5ML SYRP 1 tsp PO q6h PRN cough GUAIFENESIN-CODEINE 24850941526 No Longer Active Jessica Lock RN Active TYLENOL 8 HOUR 650 MG CR-TABS ONE TABLET THREE TIMES A DAY ACETAMINOPHEN 37931626628 No Longer Active Eber Parish MD Active CLARITIN 10 MG CAPS ONE CAPSULE DAILY LORATADINE 00679284905 No Longer Active Eber Parish MD Active CLARITIN 10 MG CAPS ONE CAPSULE DAILY CLARITIN 10 MG CAPS LORATADINE Inactive TYLENOL 8 HOUR 650 MG CR-TABS ONE TABLET THREE TIMES A DAY TYLENOL 8 HOUR 650 MG CR-TABS ACETAMINOPHEN Inactive GUAIFENESIN-CODEINE 100-10 MG/5ML SYRP 1 tsp PO q6h PRN cough GUAIFENESIN-CODEINE 100-10 MG/5ML SYRP 971219 GUAIFENESIN-CODEINE Inactive BACTRIM DS 800-160 MG TAB [...] a day MINOCYCLINE HCL 100 MG CAP 300572 MINOCYCLINE HCL Inactive ZITHROMAX 250 MG TAB 2 po today, then 1 po q days 2-5 ZITHROMAX 250 MG TAB 0233675 AZITHROMYCIN Inactive Advance Directives Directive Description Start [...] Measured Encounters Code Encounter Date Provider Facility CPT-20846 Level 3 Est. Patient 14:30:41 FRY COOK Eber Parish MD [facility] CPT-67099 Level 3 Est. Patient 10:47:41 FRY COOK Gregory Lechuga MD [facility] CPT-06389 Level 3 Est. Patient 15:24:42 CDT Eber Parish MD [facility] CPT-18729 Level 4 Est. Patient 10:49:34 CDT Eber Parish MD [facility] CPT-48761 Level 3 Est. Patient 08:49:14 FRY COOK Dani QUINTANILLA [facility] CPT-55452 Level 3 Est. Patient 17:37:54 CDT Eber Parish MD [facility] Procedures Code Procedure Name Date Entry Date Standard Description CPT-36110 EKG Trac and Interp 14:33:45 CDT CPT-69063 Chest 2V Frontal and Lat 14:33:45 CDT
--- OUTSIDE RECORDS SUMMARY | 2018-05-12 07:54 | XMS REPORT ---
Author Author [facility] Medical Staff Organization [facility] Address [address], [place] [address] Phone [phone] Care Team Providers Care Life Skills Coordinator Volunteer Name Role Phone ROHINI CORBETT MD PP [phone] Summary purpose TRANSITION OF CARE AUTO GENERATION Chief Complaint and Reason for Visit Admit Diagnosis 1 OT SCREEN MAMMOGRAM Problem list No authorized problems tracked for continuity of care are available for this visit. Encounters No authorized problems tracked for encounter diagnoses are available for this visit. Medications No home medications recorded for this patient visit Allergies, adverse reactions, alerts No allergy information is available for this patient. Immunizations No immunizations recorded for this patient visit Relevant diagnostic tests and/or laboratory data RESULTS Radiology Results [id number]:36:00 Bilateral Screen Digital Mammo PACs Image DATE OF EXAM: Jul [address] [facility] 0845-BILAT SCREEN DIG MAMMO : RADIOLOGY REPORT DATE OF SERVICE: 07/22/14 HISTORY: Screening for possible malignant neoplasm BILATERAL SCREENING DIGITAL MAMMOGRAPHY WITH iCAD SecondLook 7.2-H+ 0830 HOURS There is no evidence of any new nodule, architectural distortion or grouped calculi. No other abnormality is seen. IMPRESSION: Negative BI-RADS I study unchanged from 06/28/2013. DO MIGUEL Browning/luci 07/22/2014 10:54:00 / 07/22/2014 11:00:10 cc:Dr. Rohini Corbett This document has been electronically Signed by: On: DATE OF EXAM: Jul [address] [facility] 0845-BILAT SCREEN DIG MAMMO : RADIOLOGY REPORT DATE OF SERVICE: 07/22/14 HISTORY: Screening for possible malignant neoplasm BILATERAL SCREENING DIGITAL MAMMOGRAPHY WITH iCAD SecondLook 7.2-H+ 0830 HOURS There is no evidence of any new nodule, architectural distortion or grouped calculi. No other abnormality is seen. IMPRESSION: Negative BI-RADS I study unchanged from 06/28/2013. DO MIGUEL Browning/luci 07/22/2014 10:54:00 / 07/22/2014 11:00:10 cc:Dr. Rohini Corbett This document has been electronically Signed by: SUPA JOSE DO On: Jul 22 20142:36P Result Amended on 2014-07-22 at 14:36:31. Previous status was NH. History of procedures Procedure Code Code Type Description Date Performed Performing Physician 11883 CPT-4 MAMMOGRAM, SCREENING 07-22-2014 ROHINI CORBETT 20633 CPT-4 COMP SCREEN MAMMOGRAM ADD-ON 07-22-2014 ROHINI CORBETT Functional status No functional or cognitive status [...]
--- OUTSIDE RECORDS SUMMARY | 2018-05-12 07:54 | XMS REPORT | Clinical Summary ---
Author Author Admin, MINO Organization [facility] Address Unknown Phone Unavailable Allergies, Adverse Reactions, [...] Diarrhea 787.91 Active Eber Parish MD Diarrhea Pharyngitis 462 Active Eber Parish MD Acute pharyngitis SINUSITIS ICD-473.9 Inactive Eber Parish MD SINUSITIS ICD-473.9 Inactive Eber Parish MD Cellulitis ICD-682.9 Inactive Eber Parish MD SINUSITIS, ACUTE ICD-461.9 Inactive Eber Parish MD Medication List Medication Instructions Start Date Stop Date Generic Name NDC Status Provider Patient Instruction ZITHROMAX Z-PARVEEN 250 MG TABS 2 today and then 1 daily for 4 days AZITHROMYCIN 85724289283 Active Eber Parish MD Active ALEVE TABS PRN NAPROXEN SODIUM TABS 31220763270 Active Eber Parish MD Active CLARITIN 10 MG TABS Take one by mouth daily as needed LORATADINE 68248086100 No Longer Active Eber Parish MD Active ADVIL CONGESTION RELIEF 10-200 MG TABS Take 1 tablet every 4 hours PRN PHENYLEPHRINE-IBUPROFEN 84979273284 No Longer Active Eber Parish MD Active CITRACAL MAXIMUM 315-250 MG-UNIT TABS one tablet daily CALCIUM CITRATE-VITAMIN D 44883944279 No Longer Active Eber Parish MD Active MINOCYCLINE HCL 100 MG CAP 1 twice a day MINOCYCLINE HCL 78093621634 No Longer Active Eber Parish MD Active CENTRUM ULTRA WOMENS TABS one tablet daily MULTIPLE VITAMINS-MINERALS 74853157697 Active Eber Parish MD Active ZITHROMAX 250 MG TAB 2 po today, then 1 po q days 2-5 AZITHROMYCIN 97609529204 No Longer Active Gregory Lechuga MD Active TRANSDERM-SCOP 1.5 MG PT72 apply one patch to clean skin every 72 hours SCOPOLAMINE BASE 65369281175 No Longer Active Eber Parish MD Active SULFAMETHOXAZOLE-TMP DS 800-160 MG TABS Take one (1) tablet by mouth twice a day SULFAMETHOXAZOLE-TRIMETHOPRIM 17707730159 No Longer Active Jimena ROWLEY Active BACTRIM DS 800-160 MG TAB 1 tab by mouth twice daily TRIMETHOPRIM-SULFAMETHOXAZOLE 70495517542 No Longer Active Jessica Karley RN Active GUAIFENESIN-CODEINE 100-10 MG/5ML SYRP 1 tsp PO q6h PRN cough GUAIFENESIN-CODEINE 51025095990 No Longer Active Jessica Crandall RN Active TYLENOL 8 HOUR 650 MG CR-TABS ONE TABLET THREE TIMES A DAY ACETAMINOPHEN 26117109535 No Longer Active Eber Parish MD Active CLARITIN 10 MG CAPS ONE CAPSULE DAILY LORATADINE 85922569928 No Longer Active Eber Parish MD Active CLARITIN 10 MG CAPS ONE CAPSULE DAILY CLARITIN 10 MG CAPS LORATADINE Inactive TYLENOL 8 HOUR 650 MG CR-TABS ONE TABLET THREE TIMES A DAY TYLENOL 8 HOUR 650 MG CR-TABS ACETAMINOPHEN Inactive GUAIFENESIN-CODEINE 100-10 MG/5ML SYRP 1 tsp PO q6h PRN cough GUAIFENESIN-CODEINE 100-10 MG/5ML SYRP 673793 GUAIFENESIN-CODEINE Inactive BACTRIM DS 800-160 MG TAB [...] a day MINOCYCLINE HCL 100 MG CAP 589864 MINOCYCLINE HCL Inactive CITRACAL MAXIMUM 315-250 MG-UNIT TABS one tablet daily CITRACAL MAXIMUM 315-250 MG-UNIT TABS 5108169 CALCIUM CITRATE-VITAMIN D Inactive ADVIL CONGESTION RELIEF 10-200 MG TABS Take 1 tablet every 4 hours PRN ADVIL CONGESTION RELIEF 10-200 MG TABS PHENYLEPHRINE-IBUPROFEN Inactive CLARITIN 10 MG TABS Take one by mouth daily as needed CLARITIN 10 MG TABS 529419 LORATADINE Inactive ZITHROMAX 250 MG TAB 2 po today, then 1 po q days 2-5 ZITHROMAX 250 MG TAB 2080408 AZITHROMYCIN Inactive Advance Directives Directive Description Start Date PERMISSION TO SHARE Vital Signs Date Name Value Unit Range Description blood pressure, diastolic - 8462-4 84 mm[Hg] BP hunter blood pressure, systolic - 8480-6 137 mm[Hg] BP sys pulse rate E&M - 8867-4 90 /min Heart rate temperature E&M 97.7 [degF] Body temperature weight E&M - 3141-9 281 [lb_av] Weight Measured blood pressure, diastolic - 8462-4 80 mm[Hg] BP hunter blood pressure, systolic - 8480-6 122 mm[Hg] BP sys height E&M - 8302-2 68 [in_us] Bdy height pulse rate E&M - 8867-4 88 /min Heart rate temperature E&M 97.8 [degF] Body temperature weight E&M - 3141-9 283.8 [lb_av] Weight Measured Encounters Code Encounter Date Provider Facility CPT-59796 Level 3 Est. Patient 10:20:54 WILDLIFE BIOSTATION RESEARCH ECOLOGIST Eber Parish MD [facility] CPT-47282 Level 3 Est. Patient 14:30:41 WILDLIFE BIOSTATION RESEARCH ECOLOGIST Eber Parish MD [facility] CPT-52575 Level 3 Est. Patient 10:47:41 WILDLIFE BIOSTATION RESEARCH ECOLOGIST Gregory Lechuga MD [facility] CPT-67818 Level 3 Est. Patient 15:24:42 CDT Eber Parish MD [facility] CPT-75252 Level 4 Est. Patient 10:49:34 CDT Eber Parish MD [facility] CPT-64754 Level 3 Est. Patient 08:49:14 WILDLIFE BIOSTATION RESEARCH ECOLOGIST Dani QUINTANILLA [facility] CPT-57560 Level 3 Est. Patient 17:37:54 CDT Eber Parish MD [facility] Procedures Code Procedure Name Date Entry Date Standard Description CPT-99595 EKG Trac and Interp 14:33:45 CDT CPT-85494 Chest 2V Frontal and Lat 14:33:45 CDT
--- OUTSIDE RECORDS SUMMARY | 2018-05-12 07:55 | XMS REPORT | Clinical Summary ---
Author Author Admin, MINO Organization [facility] Address Unknown Phone Unavailable Allergies, Adverse Reactions, [...] one by mouth daily as needed LORATADINE 05530719453 Active Eber Parish MD Active MINOCYCLINE HCL 100 MG CAP 1 twice a day MINOCYCLINE HCL 04076927571 No Longer Active Eber Parish MD Active CITRACAL MAXIMUM 315-250 MG-UNIT TABS one tablet daily CALCIUM CITRATE- VITAMIN D 83308800768 Active Eber Parish MD Active CENTRUM ULTRA WOMENS TABS one tablet daily MULTIPLE VITAMINS-MINERALS 19266721189 Active Eber Parish MD Active ZITHROMAX 250 MG TAB 2 po today, then 1 po q days 2-5 AZITHROMYCIN 92316416616 No Longer Active Gregory Lechuga MD Active ADVIL CONGESTION RELIEF 10-200 MG TABS Take 1 tablet every 4 hours PRN PHENYLEPHRINE-IBUPROFEN 13785680720 Active Gregory Lechuga MD Active TRANSDERM-SCOP 1.5 MG PT72 apply one patch to clean skin every 72 hours SCOPOLAMINE BASE 04095956146 No Longer Active Eber Parish MD Active SULFAMETHOXAZOLE-TMP DS 800-160 MG TABS Take one (1) tablet by mouth twice a day SULFAMETHOXAZOLE-TRIMETHOPRIM 49729853361 No Longer Active Jimena ROWLEY Active BACTRIM DS 800-160 MG TAB 1 tab by mouth twice daily TRIMETHOPRIM-SULFAMETHOXAZOLE 36758459320 No Longer Active Jessica Karley RN Active GUAIFENESIN-CODEINE 100-10 MG/5ML SYRP 1 tsp PO q6h PRN cough GUAIFENESIN-CODEINE 99825963175 No Longer Active Jessica Lock RN Active TYLENOL 8 HOUR 650 MG CR-TABS ONE TABLET THREE TIMES A DAY ACETAMINOPHEN 03674767015 No Longer Active Eber Parish MD Active CLARITIN 10 MG CAPS ONE CAPSULE DAILY LORATADINE 04128518268 No Longer Active Eber Parish MD Active CLARITIN 10 MG CAPS ONE CAPSULE DAILY CLARITIN 10 MG CAPS LORATADINE Inactive TYLENOL 8 HOUR 650 MG CR-TABS ONE TABLET THREE TIMES A DAY TYLENOL 8 HOUR 650 MG CR-TABS ACETAMINOPHEN Inactive GUAIFENESIN-CODEINE 100-10 MG/5ML SYRP 1 tsp PO q6h PRN cough GUAIFENESIN-CODEINE 100-10 MG/5ML SYRP 355358 GUAIFENESIN-CODEINE Inactive BACTRIM DS 800-160 MG TAB [...] a day MINOCYCLINE HCL 100 MG CAP 223699 MINOCYCLINE HCL Inactive ZITHROMAX 250 MG TAB 2 po today, then 1 po q days 2-5 ZITHROMAX 250 MG TAB 7333529 AZITHROMYCIN Inactive Advance Directives Directive Description Start [...] Measured Encounters Code Encounter Date Provider Facility CPT-92081 Level 3 Est. Patient 14:30:41 ALPINE GUIDE Eber Parish MD [facility] CPT-11038 Level 3 Est. Patient 10:47:41 ALPINE GUIDE Gregory Lechuga MD [facility] CPT-66621 Level 3 Est. Patient 15:24:42 CDT Eber Parish MD [facility] CPT-59117 Level 4 Est. Patient 10:49:34 CDT Eber Parish MD [facility] CPT-31135 Level 3 Est. Patient 08:49:14 ALPINE GUIDE Dani QUINTANILLA [facility] CPT-34154 Level 3 Est. Patient 17:37:54 CDT Eber Parish MD [facility] Procedures Code Procedure Name Date Entry Date Standard Description CPT-05132 EKG Trac and Interp 14:33:45 CDT CPT-51902 Chest 2V Frontal and Lat 14:33:45 CDT
--- OUTSIDE RECORDS SUMMARY | 2018-05-12 07:55 | XMS REPORT | Clinical Summary ---
Author Author Admin, MINO Organization [facility] Address Unknown Phone Unavailable Allergies, [...] pharyngitis SINUSITIS ICD-473.9 Inactive Eber Parish MD SINUSITIS, ACUTE ICD-461.9 Inactive Eber Parish MD SINUSITIS ICD-473.9 Inactive Eber Parish MD Cellulitis ICD-682.9 Inactive Eber Parish MD Medication List Medication Instructions Start Date Stop Date Generic Name NDC Status Provider Patient Instruction ZITHROMAX Z-PARVEEN 250 MG TABS 2 today and then 1 daily for 4 days AZITHROMYCIN 69405523625 Active Eber Parish MD Active ALEVE TABS PRN NAPROXEN SODIUM TABS 11991818057 Active Eber Parish MD Active CLARITIN 10 MG TABS Take one by mouth daily as needed LORATADINE 34081040493 No Longer Active Eber Parish MD Active ADVIL CONGESTION RELIEF 10-200 MG TABS Take 1 tablet every 4 hours PRN PHENYLEPHRINE-IBUPROFEN 02960790104 No Longer Active Eber Parish MD Active CITRACAL MAXIMUM 315-250 MG-UNIT TABS one tablet daily CALCIUM CITRATE-VITAMIN D 00588796723 No Longer Active Eber Parish MD Active MINOCYCLINE HCL 100 MG CAP 1 twice a day MINOCYCLINE HCL 64487706928 No Longer Active Eber Parish MD Active CENTRUM ULTRA WOMENS TABS one tablet daily MULTIPLE VITAMINS-MINERALS 52572018182 Active Eber Parish MD Active ZITHROMAX 250 MG TAB 2 po today, then 1 po q days 2-5 AZITHROMYCIN 97408185701 No Longer Active Gregory Lechuga MD Active TRANSDERM-SCOP 1.5 MG PT72 apply one patch to clean skin every 72 hours SCOPOLAMINE BASE 19725875957 No Longer Active Eber Parish MD Active SULFAMETHOXAZOLE-TMP DS 800-160 MG TABS Take one (1) tablet by mouth twice a day SULFAMETHOXAZOLE-TRIMETHOPRIM 49864377743 No Longer Active Jimena ROWLEY Active BACTRIM DS 800-160 MG TAB 1 tab by mouth twice daily TRIMETHOPRIM-SULFAMETHOXAZOLE 28192181691 No Longer Active Jessica Karley RN Active GUAIFENESIN-CODEINE 100-10 MG/5ML SYRP 1 tsp PO q6h PRN cough GUAIFENESIN-CODEINE 18234247636 No Longer Active Jessica Crandall RN Active TYLENOL 8 HOUR 650 MG CR-TABS ONE TABLET THREE TIMES A DAY ACETAMINOPHEN 37978575787 No Longer Active Eber Parish MD Active CLARITIN 10 MG CAPS ONE CAPSULE DAILY LORATADINE 42703045338 No Longer Active Eber Parish MD Active CLARITIN 10 MG CAPS ONE CAPSULE DAILY CLARITIN 10 MG CAPS LORATADINE Inactive TYLENOL 8 HOUR 650 MG CR-TABS ONE TABLET THREE TIMES A DAY TYLENOL 8 HOUR 650 MG CR-TABS ACETAMINOPHEN Inactive GUAIFENESIN-CODEINE 100-10 MG/5ML SYRP 1 tsp PO q6h PRN cough GUAIFENESIN-CODEINE 100-10 MG/5ML SYRP 677892 GUAIFENESIN-CODEINE Inactive BACTRIM DS 800-160 MG TAB [...] a day MINOCYCLINE HCL 100 MG CAP 369557 MINOCYCLINE HCL Inactive CITRACAL MAXIMUM 315-250 MG-UNIT TABS one tablet daily CITRACAL MAXIMUM 315-250 MG-UNIT TABS 6790673 CALCIUM CITRATE-VITAMIN D Inactive ADVIL CONGESTION RELIEF 10-200 MG TABS Take 1 tablet every 4 hours PRN ADVIL CONGESTION RELIEF 10-200 MG TABS PHENYLEPHRINE-IBUPROFEN Inactive CLARITIN 10 MG TABS Take one by mouth daily as needed CLARITIN 10 MG TABS 340590 LORATADINE Inactive ZITHROMAX 250 MG TAB 2 po today, then 1 po q days 2-5 ZITHROMAX 250 MG TAB 7992639 AZITHROMYCIN Inactive Advance Directives Directive Description Start [...] Measured Encounters Code Encounter Date Provider Facility CPT-62657 Level 3 Est. 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 Patient 14:30:41 SIX HORSE HITCH DRIVER Eber Parish MD [facility] CPT-68211 Level 3 Est. Patient 10:47:41 SIX HORSE HITCH DRIVER Gregory Lechuga MD [facility] CPT-33563 Level 3 Est. Patient 15:24:42 CDT Eber Parish MD [facility] CPT-70263 Level 4 Est. Patient 10:49:34 CDT Eber Parish MD [facility] CPT-14743 Level 3 Est. Patient 08:49:14 SIX HORSE HITCH DRIVER Dani QUINTANILLA [facility] CPT-23492 Level 3 Est. Patient 17:37:54 CDT Eber Parish MD [facility] Procedures Code Procedure Name Date Entry Date Standard Description CPT-44023 EKG Trac and Interp 14:33:45 CDT CPT-06863 Chest 2V Frontal and Lat 14:33:45 CDT
--- OUTSIDE RECORDS SUMMARY | 2018-05-12 07:55 | XMS REPORT | Clinical Summary ---
Author Author Admin, MINO Organization [facility] Address Unknown Phone Unavailable Allergies, Adverse Reactions, [...] one by mouth daily as needed LORATADINE 34931418447 Active Eber Parish MD Active MINOCYCLINE HCL 100 MG CAP 1 twice a day MINOCYCLINE HCL 76213436158 No Longer Active Eber Parish MD Active CITRACAL MAXIMUM 315-250 MG-UNIT TABS one tablet daily CALCIUM CITRATE- VITAMIN D 42551614584 Active Eber Parish MD Active CENTRUM ULTRA WOMENS TABS one tablet daily MULTIPLE VITAMINS-MINERALS 08742910633 Active Eber Parish MD Active ZITHROMAX 250 MG TAB 2 po today, then 1 po q days 2-5 AZITHROMYCIN 40842398059 No Longer Active Gregory Lechuga MD Active ADVIL CONGESTION RELIEF 10-200 MG TABS Take 1 tablet every 4 hours PRN PHENYLEPHRINE-IBUPROFEN 47718291771 Active Gregory Lechuga MD Active TRANSDERM-SCOP 1.5 MG PT72 apply one patch to clean skin every 72 hours SCOPOLAMINE BASE 52666743845 No Longer Active Eber Parish MD Active SULFAMETHOXAZOLE-TMP DS 800-160 MG TABS Take one (1) tablet by mouth twice a day SULFAMETHOXAZOLE-TRIMETHOPRIM 03530623701 No Longer Active Jimena ROWLEY Active BACTRIM DS 800-160 MG TAB 1 tab by mouth twice daily TRIMETHOPRIM-SULFAMETHOXAZOLE 97632944332 No Longer Active Jessica Karley RN Active GUAIFENESIN-CODEINE 100-10 MG/5ML SYRP 1 tsp PO q6h PRN cough GUAIFENESIN-CODEINE 83243839271 No Longer Active Jessica Lock RN Active TYLENOL 8 HOUR 650 MG CR-TABS ONE TABLET THREE TIMES A DAY ACETAMINOPHEN 52230145718 No Longer Active Eber Parish MD Active CLARITIN 10 MG CAPS ONE CAPSULE DAILY LORATADINE 78555047875 No Longer Active Eber Parish MD Active CLARITIN 10 MG CAPS ONE CAPSULE DAILY CLARITIN 10 MG CAPS LORATADINE Inactive TYLENOL 8 HOUR 650 MG CR-TABS ONE TABLET THREE TIMES A DAY TYLENOL 8 HOUR 650 MG CR-TABS ACETAMINOPHEN Inactive GUAIFENESIN-CODEINE 100-10 MG/5ML SYRP 1 tsp PO q6h PRN cough GUAIFENESIN-CODEINE 100-10 MG/5ML SYRP 865241 GUAIFENESIN-CODEINE Inactive BACTRIM DS 800-160 MG TAB [...] a day MINOCYCLINE HCL 100 MG CAP 558462 MINOCYCLINE HCL Inactive ZITHROMAX 250 MG TAB 2 po today, then 1 po q days 2-5 ZITHROMAX 250 MG TAB 0129241 AZITHROMYCIN Inactive Advance Directives Directive Description Start [...] Measured Encounters Code Encounter Date Provider Facility CPT-01849 Level 3 Est. 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 Patient 10:47:41 BROKERAGE OFFICE MANAGER Gregory Lechuga MD [facility] CPT-11760 Level 3 Est. Patient 15:24:42 CDT Eber Parish MD [facility] CPT-84329 Level 4 Est. Patient 10:49:34 CDT Eber Parish MD [facility] CPT-82320 Level 3 Est. Patient 08:49:14 BROKERAGE OFFICE MANAGER Dani QUINTANILLA [facility] CPT-94444 Level 3 Est. Patient 17:37:54 CDT Eber Parish MD [facility] Procedures Code Procedure Name Date Entry Date Standard Description CPT-03956 EKG Trac and Interp 14:33:45 CDT CPT-27400 Chest 2V Frontal and Lat 14:33:45 CDT
--- OUTSIDE RECORDS SUMMARY | 2018-05-12 07:55 | XMS REPORT | Clinical Summary ---
Author Author Admin, MINO Organization [facility] Address Unknown Phone Unavailable Allergies, Adverse Reactions, [...] one by mouth daily as needed LORATADINE 06133672855 Active Eber Parish MD Active MINOCYCLINE HCL 100 MG CAP 1 twice a day MINOCYCLINE HCL 31437444888 No Longer Active Eber Parish MD Active CITRACAL MAXIMUM 315-250 MG-UNIT TABS one tablet daily CALCIUM CITRATE- VITAMIN D 16991594019 Active Eber Parish MD Active CENTRUM ULTRA WOMENS TABS one tablet daily MULTIPLE VITAMINS-MINERALS 70728615159 Active Eber Parish MD Active ZITHROMAX 250 MG TAB 2 po today, then 1 po q days 2-5 AZITHROMYCIN 96620570064 No Longer Active Gregory Lechuga MD Active ADVIL CONGESTION RELIEF 10-200 MG TABS Take 1 tablet every 4 hours PRN PHENYLEPHRINE-IBUPROFEN 95371719953 Active Gregory Lechuga MD Active TRANSDERM-SCOP 1.5 MG PT72 apply one patch to clean skin every 72 hours SCOPOLAMINE BASE 01541172980 No Longer Active Eber Parish MD Active SULFAMETHOXAZOLE-TMP DS 800-160 MG TABS Take one (1) tablet by mouth twice a day SULFAMETHOXAZOLE-TRIMETHOPRIM 65727832268 No Longer Active Jimena ROWLEY Active BACTRIM DS 800-160 MG TAB 1 tab by mouth twice daily TRIMETHOPRIM-SULFAMETHOXAZOLE 37262315231 No Longer Active Jessica Karley RN Active GUAIFENESIN-CODEINE 100-10 MG/5ML SYRP 1 tsp PO q6h PRN cough GUAIFENESIN-CODEINE 08107041172 No Longer Active Jessica Lock RN Active TYLENOL 8 HOUR 650 MG CR-TABS ONE TABLET THREE TIMES A DAY ACETAMINOPHEN 28901187532 No Longer Active Eber Parish MD Active CLARITIN 10 MG CAPS ONE CAPSULE DAILY LORATADINE 78422676463 No Longer Active Eber Parish MD Active CLARITIN 10 MG CAPS ONE CAPSULE DAILY CLARITIN 10 MG CAPS LORATADINE Inactive TYLENOL 8 HOUR 650 MG CR-TABS ONE TABLET THREE TIMES A DAY TYLENOL 8 HOUR 650 MG CR-TABS ACETAMINOPHEN Inactive GUAIFENESIN-CODEINE 100-10 MG/5ML SYRP 1 tsp PO q6h PRN cough GUAIFENESIN-CODEINE 100-10 MG/5ML SYRP 232485 GUAIFENESIN-CODEINE Inactive BACTRIM DS 800-160 MG TAB [...] a day MINOCYCLINE HCL 100 MG CAP 072766 MINOCYCLINE HCL Inactive ZITHROMAX 250 MG TAB 2 po today, then 1 po q days 2-5 ZITHROMAX 250 MG TAB 3547862 AZITHROMYCIN Inactive Advance Directives Directive Description Start [...] Measured Encounters Code Encounter Date Provider Facility CPT-13811 Level 3 Est. 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 Patient 10:47:41 CHEMICALS FERMENTATION OPERATOR Gregory Lechuga MD [facility] CPT-08388 Level 3 Est. Patient 15:24:42 CDT Eber Parish MD [facility] CPT-37170 Level 4 Est. Patient 10:49:34 CDT Eber Parish MD [facility] CPT-71985 Level 3 Est. Patient 08:49:14 CHEMICALS FERMENTATION OPERATOR Dani QUINTANILLA [facility] CPT-37879 Level 3 Est. Patient 17:37:54 CDT Eber Parish MD [facility] Procedures Code Procedure Name Date Entry Date Standard Description CPT-61733 EKG Trac and Interp 14:33:45 CDT CPT-35007 Chest 2V Frontal and Lat 14:33:45 CDT
--- OUTSIDE RECORDS SUMMARY | 2018-05-12 07:56 | XMS REPORT | Clinical Summary ---
Author Author Admin, MINO Organization [facility] Address Unknown Phone Unavailable Allergies, [...] then 1 daily for 4 days AZITHROMYCIN 30352066868 Active Eber Parish MD Active ALEVE TABS PRN NAPROXEN SODIUM TABS 59675302695 Active Eber Parish MD Active CLARITIN 10 MG TABS Take one by mouth daily as needed LORATADINE 17135985730 No Longer Active Eber Parish MD Active ADVIL CONGESTION RELIEF 10-200 MG TABS Take 1 tablet every 4 hours PRN PHENYLEPHRINE-IBUPROFEN 97223925913 No Longer Active Eber Parish MD Active CITRACAL MAXIMUM 315-250 MG-UNIT TABS one tablet daily CALCIUM CITRATE-VITAMIN D 15230953766 No Longer Active Eber Parish MD Active MINOCYCLINE HCL 100 MG CAP 1 twice a day MINOCYCLINE HCL 33239187160 No Longer Active Eber Parish MD Active CENTRUM ULTRA WOMENS TABS one tablet daily MULTIPLE VITAMINS-MINERALS 44270251122 Active Eber Parish MD Active ZITHROMAX 250 MG TAB 2 po today, then 1 po q days 2-5 AZITHROMYCIN 43571483586 No Longer Active Gregory Lechuga MD Active TRANSDERM-SCOP 1.5 MG PT72 apply one patch to clean skin every 72 hours SCOPOLAMINE BASE 49074154155 No Longer Active Eber Parish MD Active SULFAMETHOXAZOLE-TMP DS 800-160 MG TABS Take one (1) tablet by mouth twice a day SULFAMETHOXAZOLE-TRIMETHOPRIM 39334241628 No Longer Active Jimena ROWLEY Active BACTRIM DS 800-160 MG TAB 1 tab by mouth twice daily TRIMETHOPRIM-SULFAMETHOXAZOLE 67150712035 No Longer Active Jessica Karley RN Active GUAIFENESIN-CODEINE 100-10 MG/5ML SYRP 1 tsp PO q6h PRN cough GUAIFENESIN-CODEINE 16809766058 No Longer Active Jessica Crandall RN Active TYLENOL 8 HOUR 650 MG CR-TABS ONE TABLET THREE TIMES A DAY ACETAMINOPHEN 43864701959 No Longer Active Eber Parish MD Active CLARITIN 10 MG CAPS ONE CAPSULE DAILY LORATADINE 97363557764 No Longer Active Eber Parish MD Active CLARITIN 10 MG CAPS ONE CAPSULE DAILY CLARITIN 10 MG CAPS LORATADINE Inactive TYLENOL 8 HOUR 650 MG CR-TABS ONE TABLET THREE TIMES A DAY TYLENOL 8 HOUR 650 MG CR-TABS ACETAMINOPHEN Inactive GUAIFENESIN-CODEINE 100-10 MG/5ML SYRP 1 tsp PO q6h PRN cough GUAIFENESIN-CODEINE 100-10 MG/5ML SYRP 020724 GUAIFENESIN-CODEINE Inactive BACTRIM DS 800-160 MG TAB [...] a day MINOCYCLINE HCL 100 MG CAP 080476 MINOCYCLINE HCL Inactive CITRACAL MAXIMUM 315-250 MG-UNIT TABS one tablet daily CITRACAL MAXIMUM 315-250 MG-UNIT TABS 2095302 CALCIUM CITRATE-VITAMIN D Inactive ADVIL CONGESTION RELIEF 10-200 MG TABS Take 1 tablet every 4 hours PRN ADVIL CONGESTION RELIEF 10-200 MG TABS PHENYLEPHRINE-IBUPROFEN Inactive CLARITIN 10 MG TABS Take one by mouth daily as needed CLARITIN 10 MG TABS 580147 LORATADINE Inactive ZITHROMAX 250 MG TAB 2 po today, then 1 po q days 2-5 ZITHROMAX 250 MG TAB 2050753 AZITHROMYCIN Inactive Advance Directives Directive Description Start [...] Measured Encounters Code Encounter Date Provider Facility CPT-00198 Level 3 Est. Patient 10:20:54 RECORD PRESS TENDER Eber Parish MD [facility] CPT-33161 Level 3 Est. Patient 14:30:41 RECORD PRESS TENDER Eber Parish MD [facility] CPT-43243 Level 3 Est. Patient 10:47:41 RECORD PRESS TENDER Gergory Lechuga MD [facility] CPT-99377 Level 3 Est. Patient 15:24:42 CDT Eber Parish MD [facility] CPT-47018 Level 4 Est. Patient 10:49:34 CDT Eber Parish MD [facility] CPT-65148 Level 3 Est. Patient 08:49:14 RECORD PRESS TENDER Dani QUINTANILLA [facility] CPT-77937 Level 3 Est. Patient 17:37:54 CDT Eber Parish MD [facility] Procedures Code Procedure Name Date Entry Date Standard Description CPT-71370 EKG Trac and Interp 14:33:45 CDT CPT-42249 Chest 2V Frontal and Lat 14:33:45 CDT
--- OUTSIDE RECORDS SUMMARY | 2018-05-12 07:56 | XMS REPORT ---
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 Previous status was CT. History of procedures No procedures recorded for [...]
--- OUTSIDE RECORDS SUMMARY | 2018-05-12 07:56 | XMS REPORT | Clinical Summary ---
Author Author Admin, MINO Organization [facility] Address Unknown Phone Unavailable Allergies, [...] and unspecified hyperlipidemia SINUSITIS, ACUTE 461.9 Resolved Eebr Parish MD Acute sinusitis, unspecified OBESITY 278.00 [...] one by mouth daily as needed LORATADINE 11443151457 Active Eber Parish MD Active MINOCYCLINE HCL 100 MG CAP 1 twice a day MINOCYCLINE HCL 67508305226 No Longer Active Eber Parish MD Active CITRACAL MAXIMUM 315-250 MG-UNIT TABS one tablet daily CALCIUM CITRATE- VITAMIN D 87042855159 Active Eber Parish MD Active CENTRUM ULTRA WOMENS TABS one tablet daily MULTIPLE VITAMINS-MINERALS 85610887602 Active Eber Parish MD Active ZITHROMAX 250 MG TAB 2 po today, then 1 po q days 2-5 AZITHROMYCIN 29850065288 No Longer Active Gregory Lechuga MD Active ADVIL CONGESTION RELIEF 10-200 MG TABS Take 1 tablet every 4 hours PRN PHENYLEPHRINE-IBUPROFEN 10570840097 Active Gregory Lechuga MD Active TRANSDERM-SCOP 1.5 MG PT72 apply one patch to clean skin every 72 hours SCOPOLAMINE BASE 23954216537 No Longer Active Eber Parish MD Active SULFAMETHOXAZOLE-TMP DS 800-160 MG TABS Take one (1) tablet by mouth twice a day SULFAMETHOXAZOLE-TRIMETHOPRIM 25698420675 No Longer Active Jimena ROWLEY Active BACTRIM DS 800-160 MG TAB 1 tab by mouth twice daily TRIMETHOPRIM-SULFAMETHOXAZOLE 71728259284 No Longer Active Jessica Karley RN Active GUAIFENESIN-CODEINE 100-10 MG/5ML SYRP 1 tsp PO q6h PRN cough GUAIFENESIN-CODEINE 85071573371 No Longer Active Jessica Lock RN Active TYLENOL 8 HOUR 650 MG CR-TABS ONE TABLET THREE TIMES A DAY ACETAMINOPHEN 53203848281 No Longer Active Eber Parish MD Active CLARITIN 10 MG CAPS ONE CAPSULE DAILY LORATADINE 19837124609 No Longer Active Eber Parish MD Active CLARITIN 10 MG CAPS ONE CAPSULE DAILY CLARITIN 10 MG CAPS LORATADINE Inactive TYLENOL 8 HOUR 650 MG CR-TABS ONE TABLET THREE TIMES A DAY TYLENOL 8 HOUR 650 MG CR-TABS ACETAMINOPHEN Inactive GUAIFENESIN-CODEINE 100-10 MG/5ML SYRP 1 tsp PO q6h PRN cough GUAIFENESIN-CODEINE 100-10 MG/5ML SYRP 212717 GUAIFENESIN-CODEINE Inactive BACTRIM DS 800-160 MG TAB [...] a day MINOCYCLINE HCL 100 MG CAP 936407 MINOCYCLINE HCL Inactive ZITHROMAX 250 MG TAB 2 po today, then 1 po q days 2-5 ZITHROMAX 250 MG TAB 9910148 AZITHROMYCIN Inactive Advance Directives Directive Description Start [...] Measured Encounters Code Encounter Date Provider Facility CPT-02214 Level 3 Est. Patient 14:30:41 HOUSEFELLOW Eber Parish MD [facility] CPT-85675 Level 3 Est. Patient 10:47:41 HOUSEFELLOW Gregory Lechuga MD [facility] CPT-08508 Level 3 Est. Patient 15:24:42 CDT Eber Parish MD [facility] CPT-22865 Level 4 Est. Patient 10:49:34 CDT Eber Parish MD [facility] CPT-01630 Level 3 Est. Patient 08:49:14 HOUSEFELLOW Dani QUINTANILLA [facility] CPT-23276 Level 3 Est. Patient 17:37:54 CDT Eber Parish MD [facility] Procedures Code Procedure Name Date Entry Date Standard Description CPT-36981 EKG Trac and Interp 14:33:45 CDT CPT-86624 Chest 2V Frontal and Lat 14:33:45 CDT
--- OUTSIDE RECORDS SUMMARY | 2018-05-12 07:56 | XMS REPORT | Clinical Summary ---
Author Author Admin, MINO Organization [facility] Address Unknown Phone Unavailable Allergies, Adverse [...] then 1 daily for 4 days AZITHROMYCIN 58130300806 Active Eber Parish MD Active ALEVE TABS PRN NAPROXEN SODIUM TABS 98734222248 Active Eber Parish MD Active CLARITIN 10 MG TABS Take one by mouth daily as needed LORATADINE 54167337947 No Longer Active Eber Parish MD Active ADVIL CONGESTION RELIEF 10-200 MG TABS Take 1 tablet every 4 hours PRN PHENYLEPHRINE-IBUPROFEN 51961861124 No Longer Active Eebr Parish MD Active CITRACAL MAXIMUM 315-250 MG-UNIT TABS one tablet daily CALCIUM CITRATE-VITAMIN D 87770427847 No Longer Active Eber Parish MD Active MINOCYCLINE HCL 100 MG CAP 1 twice a day MINOCYCLINE HCL 64665920035 No Longer Active Eber Pairsh MD Active CENTRUM ULTRA WOMENS TABS one tablet daily MULTIPLE VITAMINS-MINERALS 14796388459 Active Eber Parish MD Active ZITHROMAX 250 MG TAB 2 po today, then 1 po q days 2-5 AZITHROMYCIN 23159571265 No Longer Active Gregory Lechuga MD Active TRANSDERM-SCOP 1.5 MG PT72 apply one patch to clean skin every 72 hours SCOPOLAMINE BASE 19193357340 No Longer Active Eber Parish MD Active SULFAMETHOXAZOLE-TMP DS 800-160 MG TABS Take one (1) tablet by mouth twice a day SULFAMETHOXAZOLE-TRIMETHOPRIM 13928758435 No Longer Active Jimena ROWLEY Active BACTRIM DS 800-160 MG TAB 1 tab by mouth twice daily TRIMETHOPRIM-SULFAMETHOXAZOLE 13631292872 No Longer Active Jessica Lock RN Active GUAIFENESIN-CODEINE 100-10 MG/5ML SYRP 1 tsp PO q6h PRN cough GUAIFENESIN-CODEINE 48813239345 No Longer Active Jessica Crandall RN Active TYLENOL 8 HOUR 650 MG CR-TABS ONE TABLET THREE TIMES A DAY ACETAMINOPHEN 22268150902 No Longer Active Eber Parish MD Active CLARITIN 10 MG CAPS ONE CAPSULE DAILY LORATADINE 52533131945 No Longer Active Eber Parish MD Active CLARITIN 10 MG CAPS ONE CAPSULE DAILY CLARITIN 10 MG CAPS LORATADINE Inactive TYLENOL 8 HOUR 650 MG CR-TABS ONE TABLET THREE TIMES A DAY TYLENOL 8 HOUR 650 MG CR-TABS ACETAMINOPHEN Inactive GUAIFENESIN-CODEINE 100-10 MG/5ML SYRP 1 tsp PO q6h PRN cough GUAIFENESIN-CODEINE 100-10 MG/5ML SYRP 700591 GUAIFENESIN-CODEINE Inactive BACTRIM DS 800-160 MG TAB [...] a day MINOCYCLINE HCL 100 MG CAP 065884 MINOCYCLINE HCL Inactive CITRACAL MAXIMUM 315-250 MG-UNIT TABS one tablet daily CITRACAL MAXIMUM 315-250 MG-UNIT TABS 2238949 CALCIUM CITRATE-VITAMIN D Inactive ADVIL CONGESTION RELIEF 10-200 MG TABS Take 1 tablet every 4 hours PRN ADVIL CONGESTION RELIEF 10-200 MG TABS PHENYLEPHRINE-IBUPROFEN Inactive CLARITIN 10 MG TABS Take one by mouth daily as needed CLARITIN 10 MG TABS 807661 LORATADINE Inactive ZITHROMAX 250 MG TAB 2 po today, then 1 po q days 2-5 ZITHROMAX 250 MG TAB 3591221 AZITHROMYCIN Inactive Advance Directives Directive Description Start Date PERMISSION TO SHARE Vital Signs Date Name Value Unit Range Description blood pressure, diastolic - 8462-4 84 mm[Hg] BP hutner blood pressure, systolic - 8480-6 137 mm[Hg] [...] Measured Encounters Code Encounter Date Provider Facility CPT-17741 Level 3 Est. Patient 10:20:54 TONG SETTER Eber Parish MD [facility] CPT-85314 Level 3 Est. Patient 14:30:41 TONG SETTER Eber Parish MD [facility] CPT-36001 Level 3 Est. Patient 10:47:41 TONG SETTER Gregory Lechuga MD [facility] CPT-95152 Level 3 Est. Patient 15:24:42 CDT Eber Parish MD [facility] CPT-91949 Level 4 Est. Patient 10:49:34 CDT Eber Parish MD [facility] CPT-45541 Level 3 Est. Patient 08:49:14 TONG SETTER Dani QUINTANILLA [facility] CPT-22266 Level 3 Est. Patient 17:37:54 CDT Eber Parish MD [facility] Procedures Code Procedure Name Date Entry Date Standard Description CPT-67960 EKG Trac and Interp 14:33:45 CDT CPT-14424 Chest 2V Frontal and Lat 14:33:45 CDT
--- OUTSIDE RECORDS SUMMARY | 2018-05-12 07:56 | XMS REPORT | Clinical Summary ---
Author Author Admin, MINO Organization [facility] Address Unknown Phone Unavailable Allergies, [...] one by mouth daily as needed LORATADINE 69615527861 Active Eber Parish MD Active MINOCYCLINE HCL 100 MG CAP 1 twice a day MINOCYCLINE HCL 45642857220 No Longer Active Eber Parish MD Active CITRACAL MAXIMUM 315-250 MG-UNIT TABS one tablet daily CALCIUM CITRATE- VITAMIN D 43064666747 Active Eber Parish MD Active CENTRUM ULTRA WOMENS TABS one tablet daily MULTIPLE VITAMINS-MINERALS 72493271141 Active Eber Parish MD Active ZITHROMAX 250 MG TAB 2 po today, then 1 po q days 2-5 AZITHROMYCIN 95097493071 No Longer Active Gregory Lechuga MD Active ADVIL CONGESTION RELIEF 10-200 MG TABS Take 1 tablet every 4 hours PRN PHENYLEPHRINE-IBUPROFEN 09142839544 Active Gregory Lechuga MD Active TRANSDERM-SCOP 1.5 MG PT72 apply one patch to clean skin every 72 hours SCOPOLAMINE BASE 08813903959 No Longer Active Eber Parish MD Active SULFAMETHOXAZOLE-TMP DS 800-160 MG TABS Take one (1) tablet by mouth twice a day SULFAMETHOXAZOLE-TRIMETHOPRIM 53106513479 No Longer Active Jimena ROWLEY Active BACTRIM DS 800-160 MG TAB 1 tab by mouth twice daily TRIMETHOPRIM-SULFAMETHOXAZOLE 43340188733 No Longer Active Jessica Karley RN Active GUAIFENESIN-CODEINE 100-10 MG/5ML SYRP 1 tsp PO q6h PRN cough GUAIFENESIN-CODEINE 05367367985 No Longer Active Jessica Lock RN Active TYLENOL 8 HOUR 650 MG CR-TABS ONE TABLET THREE TIMES A DAY ACETAMINOPHEN 98003220974 No Longer Active Eber Parish MD Active CLARITIN 10 MG CAPS ONE CAPSULE DAILY LORATADINE 10710050519 No Longer Active Eber Parish MD Active CLARITIN 10 MG CAPS ONE CAPSULE DAILY CLARITIN 10 MG CAPS LORATADINE Inactive TYLENOL 8 HOUR 650 MG CR-TABS ONE TABLET THREE TIMES A DAY TYLENOL 8 HOUR 650 MG CR-TABS ACETAMINOPHEN Inactive GUAIFENESIN-CODEINE 100-10 MG/5ML SYRP 1 tsp PO q6h PRN cough GUAIFENESIN-CODEINE 100-10 MG/5ML SYRP 612845 GUAIFENESIN-CODEINE Inactive BACTRIM DS 800-160 MG TAB [...] a day MINOCYCLINE HCL 100 MG CAP 158866 MINOCYCLINE HCL Inactive ZITHROMAX 250 MG TAB 2 po today, then 1 po q days 2-5 ZITHROMAX 250 MG TAB [id number] AZITHROMYCIN Inactive Advance Directives Directive Description Start [...] Measured Encounters Code Encounter Date Provider Facility CPT-49559 Level 3 Est. Patient 14:30:41 BUNDLE WRAPPER Eber Parish MD [facility] CPT-01293 Level 3 Est. Patient 10:47:41 BUNDLE WRAPPER Gregory Lechuga MD [facility] CPT-89451 Level 3 Est. Patient 15:24:42 CDT Eber Parish MD [facility] CPT-86172 Level 4 Est. Patient 10:49:34 CDT Eber Parish MD [facility] CPT-99937 Level 3 Est. Patient 08:49:14 BUNDLE WRAPPER Dani QIUNTANILLA [facility] CPT-36403 Level 3 Est. Patient 17:37:54 CDT Eber Parish MD [facility] Procedures Code Procedure Name Date Entry Date Standard Description CPT-20431 EKG Trac and Interp 14:33:45 CDT CPT-71288 Chest 2V Frontal and Lat 14:33:45 CDT
--- OUTSIDE RECORDS SUMMARY | 2018-05-12 07:57 | XMS REPORT | Continuity of Care Document ---
Demographics x Preferred Language Unknown Marital Status Unknown Oriental Orthodox Affiliation Unknown Race Unknown Ethnic Group Unknown Author Author [facility] Organization [facility] Address Unknown Phone Unavailable Allergies Active Description Code Type Severity Reaction Onset Reported/Identified Relationship to Patient Clinical Status Yes Penicillins 476 Drug Allergy N/ A N/A Confirmed or Verified Yes penicillin 3 Drug N/A N/A Yes Penicillins [id number] Drug Allergy Unknown childhood aller 05/08/2018 Medications There is no data. 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 Ot M79.605 10/22/2015 SOPHIA SANTOYO RIM FIRE CHARGER OPERATOR Ot R22.42 11/03/2015 SOPHIA SANTOYO RIM FIRE CHARGER OPERATOR Ot M79.605 11/03/2015 SOPHIA SANTOYO RIM FIRE CHARGER OPERATOR Ot R22.42 11/17/2017 SOPHIA SANTOYO RIM FIRE CHARGER OPERATOR Ot M79.605 PAIN IN LEFT LEG 11/17/2017 SOPHIA SANTOYO RIM FIRE CHARGER OPERATOR Ot R22.42 LOCALIZED SWELLING, MASS AND LUMP, LEFT 11/17/2017 SOPHIA SANTOYO RIM FIRE CHARGER OPERATOR Ot M79.605 PAIN IN LEFT LEG 11/17/2017 SOPHIA SANTOYO RIM FIRE CHARGER OPERATOR Ot R22.42 LOCALIZED SWELLING, MASS AND LUMP, LEFT 05/08/2018 ARGELIA ENG MD Ot Z01.818 ENCOUNTER FOR OTHER PREPROCEDURAL EXAMIN 05/08/2018 ARGELIA ENG MD, Ot Z01.818 ENCOUNTER FOR OTHER PREPROCEDURAL EXAMIN 05/08/2018 ARGELIA ENG MD, Ot Z01.818 ENCOUNTER FOR OTHER PREPROCEDURAL EXAMIN 05/08/2018 ARGELIA ENG MD, Ot Z01.818 ENCOUNTER FOR OTHER PREPROCEDURAL EXAMIN Procedures Code [place] [address] URINALYSIS, AUTO W/SCOPE 12/25/2014 15247 CULTURE AEROBIC IDENTIFY 12/25/2014 60556 URINE CULTURE/COLONY COUNT 12/25/2014 89412 MICROBE SUSCEPTIBLE, DEMETRA 12/25/2014 95113 URINALYSIS, AUTO W/SCOPE 09/21/2015 47976 CULTURE, BACTERIA, OTHER 09/21/2015 18296 CULTURE TYPE, IMMUNOLOGIC 09/21/2015 46628 SMEAR, GRAM STAIN 09/21/2015 22622 MARK, DNA, DIR PROBE 09/21/2015 32633 ESPINOSA VAG, DNA, DIR PROBE 09/21/2015 35729 TRICHOMONAS VAGIN, DIR PROBE 09/21/2015 47333 EMERGENCY DEPT VISIT 09/27/2015 68325 EMERGENCY DEPT VISIT 09/27/2015 48643 X-RAY EXAM OF LOWER SPINE 10/05/2015 17038 COMPREHEN METABOLIC PANEL 02/08/2016 08726 LIPID PANEL 02/08/2016 50796 URINALYSIS, AUTO W/SCOPE 02/08/2016 53188 COMPLETE CBC, AUTOMATED 02/08/2016 40782 URINE CULTURE/COLONY COUNT 02/08/2016 Results Test Result Range UA - 12/25/14 00:00 PH 6.5 4.5-8.0 SG 1.020 1.003-1.035 UABILI NEGATIVE UABLD 3+ UACOLOR YEL UAGLU NEGATIVE UAKET NEGATIVE UALEUK NEGATIVE UANIT POSITIVE UAURO 0.2 0-0.2 CLARITY CLD PROTEIN NEGATIVE UA WBC R2030 UA RBC R1020 SQUAMOUS EPITHELIAL CELLS 4+ BACTERIA 4+ CBC WITH DIFF - 12/31/14 00:00 BASO% 0.5 % 0-2 EOS% 1.5 % 0-7.0 HCT 37.4 % 36.9-47.0 HGB 11.6 G/DL 12.0-16.0 LYMPH% 26.8 % 20-40 MCH 23.8 PG 27-31 MCHC 31.0 G/DL 33-37 MCV 76.6 FL 81-99 MONO% 7.4 % 0-10.0 MPV 10.4 FL 7.3-10.4 NEUTRO% 63.8 % 40-70 PLT 324 10^3u 130-400 RBC 4.9 10^6u 4.2-5.4 RDW 14.9 % 11.5-15.5 WBC 6.5 10^3u 4.8-10.8 NEUTRO# 4.1 10^3u 1.5-7.5 LYMPH# 1.7 10^3u 0.9-4.0 MONO# 0.5 10^3u 0-0.8 EOS# 0.1 10^3u 0-0.6 BASO# 0.0 10^3u 0-0.1 UA - 12/31/14 00:00 PH 6.0 4.5-8.0 SG 1.024 UABILI NEGATIVE UABLD TRACE UACOLOR YEL UAGLU NEGATIVE UAKET NEGATIVE UALEUK NEGATIVE UANIT NEGATIVE UAURO 0.2 0-0.2 CLARITY HAZY PROTEIN NEGATIVE UA WBC R05 UA RBC R05 SQUAMOUS EPITHELIAL CELLS 2+ BACTERIA 1+ MUCOUS 3+ FREE T4 - 12/31/14 00:00 FT4 1.00 NG/DL 0.78-1.34 TSH - 12/31/14 00:00 TSH 2.71 UIUML 0.36-3.74 LIPID - 12/31/14 00:00 CHOHDL 4.6 1-3.5 CHOL 169 MG/DL 120-200 HDL 37 MG/DL 39-96 LDL 110 MG/DL 30-100 TRIG 210 MG/DL 35-160 VLDL 42 MG/DL 5-40 CMP - 12/31/14 00:00 ALB 3.2 G/DL 3.5-5 ALP 80 IU/L 25-72 ALT 16 IU/L 12-65 AST 14 IU/L 10-42 BCR 10.9 10-20 BUN 10 MG/DL 7-18 CA 8.6 MG/DL 8.4-10.2 CL 105 MEQ/L 98-107 CO2 26.7 MEQ/L 22-28 CREA 0.92 MG/DL 0.6-1.0 EGFR 67 eGFR >=60 GLU 94 MG/DL 70-105 K 4.1 MEQ/L 3.5-5.1 NA 142 MEQ/L 134-145 OSMSC 281.9 MOSML 280-300 TBIL 0.5 MG/DL 0.1-1.0 TP 7.0 G/DL 6.0-8.3 Albumin/Globulin Ratio 0.8 0-8 Anion Gap 10.3 8-16 UA - 09/21/15 00:00 PH 6.0 4.5-8.0 SG 1.008 UABILI NEGATIVE UABLD TRACE UACOLOR YEL UAGLU NEGATIVE UAKET NEGATIVE UALEUK NEGATIVE UANIT NEGATIVE UAURO 0.2 0-0.2 UCX NO CLARITY CLD PROTEIN NEGATIVE UA WBC R05 UA RBC NORBC SQUAMOUS EPITHELIAL CELLS 1+ BACTERIA RARE BACT VAGINOSIS ITIS PANEL - 09/21/15 00:00 BVCAND NOT DETECTED NOT DETECTED BVGARD NOT DETECTED NOT DETECTED BVTRIC NOT DETECTED NOT DETECTED CBC - 02/08/16 00:00 HCT 37.3 % 36.9-47.0 HGB 11.3 G/DL 12.0-16.0 MCH 24.5 PG 27-31 MCHC 30.3 G/DL 33-37 MCV 80.9 FL 81-99 MPV 10.2 FL 7.3-10.4 PLT 304 10^3u 130-400 RBC 4.6 10^6u 4.2-5.4 RDW 14.0 % 11.5-15.5 WBC 6.9 10^3u 4.8-10.8 LIPID - 02/08/16 00:00 CHOHDL 4.4 1-3.5 CHOL 183 MG/DL 120-200 HDL 42 MG/DL 39-96 LDL 126 MG/DL 30-100 TRIG 168 MG/DL 35-160 VLDL 34 MG/DL 5-40 CMP - 02/08/16 00:00 ALB 3.0 G/DL 3.5-5 ALP 74 IU/L 25-72 ALT 20 IU/L 12-65 AST 20 IU/L 10-42 BCR 12.0 10-20 BUN 11 MG/DL 7-18 CA 8.1 MG/DL 8.4-10.2 CL 105 MEQ/L 98-107 CO2 24.9 MEQ/L 22-28 CREA 0.92 MG/DL 0.6-1.0 EGFR 66 eGFR >=60 GLU 94 MG/DL 70-105 K 4.0 MEQ/L 3.5-5.1 NA 137 MEQ/L 134-145 OSMSC 273.0 MOSML 280-300 TBIL 0.3 MG/DL 0.1-1.0 TP 6.9 G/DL 6.0-8.3 Albumin/Globulin Ratio 0.8 0-8 Anion Gap 7.1 8-16 UA - 02/08/16 00:00 PH 6.0 4.5-8.0 SG 1.010 1.003-1.035 UABILI NEGATIVE UABLD TRACE UACOLOR YEL UAGLU NEGATIVE UAKET NEGATIVE UALEUK 1+ UANIT NEGATIVE UAURO 0.2 0-0.2 UCX YES CLARITY HAZY PROTEIN NEGATIVE UA WBC R510 UA RBC R05 SQUAMOUS EPITHELIAL CELLS 2+ BACTERIA OCC Urine beta human chorionic gonadotropin (hCG) measurement - 05/11/18 13:04 Urine beta human chorionic gonadotropin (hCG) measurement NEGATIVE NEGATIVE Complete blood count (CBC) with automated white blood cell (WBC) differential - 05/11/18 13:40 Blood leukocytes automated count (number/volume) 7.2 10*3/uL 4.3-11.0 Blood erythrocytes automated count (number/volume) 5.05 10*6/uL 4.35-5.85 Venous blood hemoglobin measurement (mass/volume) 12.6 g/dL 11.5-16.0 Blood hematocrit (volume fraction) 40 % 35-52 Automated erythrocyte mean corpuscular volume 80 [foz_us] 80-99 Automated erythrocyte mean corpuscular hemoglobin (mass per erythrocyte) 25 pg 25-34 Automated erythrocyte mean corpuscular hemoglobin concentration measurement ( mass/volume) 31 g/dL 32-36 Automated erythrocyte distribution width ratio 15.0 % 10.0-14.5 Automated blood platelet count (count/volume) 331 10*3/uL 130-400 Automated blood platelet mean volume measurement 9.6 [foz_us] 7.4-10.4 Automated blood neutrophils/100 leukocytes 55 % 42-75 Automated blood lymphocytes/100 leukocytes 38 % 12-44 Blood monocytes/100 leukocytes 6 % 0-12 Automated blood eosinophils/100 leukocytes 1 % 0-10 Automated blood basophils/100 leukocytes 0 % 0-10 Blood neutrophils automated count (number/volume) 4.0 10*3 1.8-7.8 Blood lymphocytes automated count (number/volume) 2.7 10*3 1.0-4.0 Blood monocytes automated count (number/volume) 0.4 10*3 0.0-1.0 Automated eosinophil count 0.1 10*3/uL 0.0-0.3 Automated blood basophil count (count/volume) 0.0 10*3/uL 0.0-0.1 Encounters ACCT No. Visit Date/Time Discharge Status Pt. Type Provider Facility Loc./Unit Complaint [id number] 02/08/2016 08:07:00 02/08/2016 08:07:00 DIS Outpatient SOPHIA SANTOYO [facility] [id number] 10/05/2015 15:54:00 10/05/2015 15:54:00 DIS Outpatient SOPHIA SANTOYO [facility] [id number] 09/27/2015 16:31:00 09/27/2015 18:00:00 DIS Emergency SUPA FLORES [facility] EMR [id number] 09/21/2015 12:03:00 09/21/2015 12:03:00 DIS Outpatient SOPHIA SANTOYO [facility] [id number] 07/23/2015 07:28:00 07/23/2015 07:28:00 DIS Outpatient SOPHIA SANTOYO [facility] RAD [id number] 12/31/2014 08:48:00 12/31/2014 23:59:59 CLS Outpatient SOPHIA SANTOYO [facility] [id number] 12/25/2014 11:30:00 12/25/2014 11:30:00 DIS Outpatient SOPHIA SANTOYO [facility] [id number] 07/22/2014 08:02:00 07/22/2014 08:02:00 DIS Outpatient ARIC ROHINI Roblero [facility] RAD [id number] 09/27/2015 17:06:29 Document Registration [id number] 06/29/2015 00:00:00 Document Registration [id number] 06/29/2015 00:00:00 Document Registration [id number] 06/29/2014 00:00:00 Document Registration [id number] 06/29/2014 00:00:00 Document Registration [id number] 05/08/2018 15:50:00 05/08/2018 15:57:00 DIS Outpatient ALBERTINA TINSLEY, ARGELIA Johnson [facility] PREOP MASS IN PELVIS [id number] 11/21/2017 13:00:00 11/21/2017 23:59:59 CLS Preadmit SOPHIA SANTOYO RIM FIRE CHARGER OPERATOR [facility] RAD ENLARGED UTERUS, PELVIC PAIN [id number] 10/21/2015 10:36:00 10/21/2015 23:59:59 CLS Outpatient SOPHIA SANTOYO RIM FIRE CHARGER OPERATOR [facility] RAD LT LOWER LEG PAIN AND SWELLING [id number] 05/11/2018 14:45:00 PEN Preadmit ALBERTINA TINSLEY, ARGELIA [facility] SD MASS IN PELVIS [id number] 03/22/2018 10:58:58 03/22/2018 23:59:59 DIS Outpatient SOPHIA SANTOYO [facility] [id number] 03/19/2018 16:28:44 03/19/2018 23:59:59 DIS Outpatient SOPHIA SANTOYO [facility] [id number] 11/23/2017 13:03:56 11/23/2017 23:59:59 DIS Outpatient SOPHIA SANTOYO [facility] enlarged uterus; fluid in endometrial cavity per CT [id number] 11/16/2017 13:16:44 11/16/2017 23:59:59 DIS Outpatient SOPHIA SANTOYO [facility] pelvic pain, umbilical pain, bloating [id number] 11/14/2017 14:55:51 11/14/2017 23:59:59 DIS Outpatient SOPHIA SANTOYO [facility] [place] [facility] lab [id number] 11/14/2017 13:30:00 11/14/2017 23:59:59 DIS Outpatient SOPHIA SANTOYO [facility] [place] [facility] [id number] 08/16/2017 14:50:13 08/16/2017 23:59:59 DIS Outpatient SOPHIA SANTOYO [facility] screening [id number] 05/29/2017 15:41:37 05/29/2017 23:59:59 DIS Outpatient SOPHIA SANTOYO [facility] [place] [facility] [id number] 01/02/2017 09:00:00 01/02/2017 23:59:59 CLS Outpatient SOPHIA SANTOYO [facility] [id number] 01/02/2017 08:33:00 01/02/2017 23:59:59 CLS Outpatient SOPHIA SANTOYO [facility] lab [id number] 11/30/2016 09:00:00 11/30/2016 23:59:59 CLS Outpatient SOPHIA SANTOYO [facility] [id number] 11/30/2016 08:16:48 11/30/2016 23:59:59 CLS Outpatient SOPHIA SANTOYO [facility] [place] [facility] xray/lab [id number] 11/25/2016 10:00:00 11/25/2016 23:59:59 CLS Outpatient SOPHIA SANTOYO [facility] [id number] 08/10/2016 16:58:33 08/10/2016 23:59:59 CLS Outpatient SOPHIA SANTOYO [facility] RAD screening [id number] 11/24/2016 17:23:19 Document Registration
== END 2018-05-11 17:02 | disposition home or self-care (01) ==
LOC: SDC 12:54
PROVIDERS: ATTEND Obstetrics & Gynecology
DX: N92.0 Excessive and frequent menstruation with regular cycle (principal); N93.8 Other specified abnormal uterine and vaginal bleeding; N84.0 Polyp of corpus uteri; I34.1 Nonrheumatic mitral (valve) prolapse; G47.33 Obstructive sleep apnea (adult) (pediatric); E66.01 Morbid (severe) obesity due to excess calories; Z68.41 Body mass index [BMI] 40.0-44.9, adult
CPT/HCPCS: 36415; 84703; 85025; 87081; 88305

== ENCOUNTER 2021-07-05 04:26 | Emergency (ER) | payer BC ==
[~2021-07-05] VITALS: Ht 173 cm; Wt 131.4 kg
[~2021-07-05 04:26] MED LIST changes: +OXYC1TAB87 PO
--- OUTSIDE RECORDS SUMMARY | 2021-07-05 04:34 | XMS REPORT | Clinical Summary ---
Author Author [facility] Organization 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 Name Role Phone Marilee Zuñiga SLIVER FORMER PCP Allergies Not on File Medications Not on file Active Problems Not on file Social History Date Tobacco Use Types Packs/Day Years Used Never Assessed Sex Assigned at Date Recorded Not on file Last Filed Vital Signs Not on file Plan of Treatment Health Maintenance Due Date Last Done Comments Td/Tdap# 1971 COVID-19 Vaccine (1) 12/09/1976 Cervical Cancer Screening 12/09/1992 via Pap Smear Influenza Vaccine (#1) 2021 Pneumococcal Vaccine: Aged Out No longer eligib le based on patient's age to Pediatrics (0 to 5 Years) complete this topic and At-Risk Patients (6 to 64 Years) Results Not on filefrom Last 3 Months Advance Directives For more information, please contact: [phone] 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
[2021-07-05] MEDS ORDERED: ATOR20TA66 (04:48)
[2021-07-05] MEDS ORDERED: KETOROLAC 30 MG/ML VIAL IVP STA (04:59)
[2021-07-05] MEDS ORDERED: ASPIRIN 81 MG CHEW (CHILDREN'S ASA) PO ONE (05:00)
--- NOTE | 2021-07-05 05:08 | ED Chest Pain ---
General Chief Complaint: Chest Wall Stated Complaint: LEFT ARM & BACK PAIN Nursing Triage Note: C/O CHEST PRESSURE/BLOATING, LEFT UPPER ARM, UPPER BACK PAIN X3 DAYS. Source: patient, family Exam Limitations: no limitations History of Present Illness Date Seen by Provider: Jul 05, 2021 Time Seen by Provider: 04:40 Initial Comments Here with report of 3 days of pressure in the area of the left arm, left anterior chest and left back. She states the arm is more of an ache. Denies any specific injury. Denies shortness of breath. She states she has decreased appetite and some intermittent constipation but denies diarrhea, diaphoresis or vomiting. She does report intermittent dizziness but states that is normal for her. States that she has had borderline high blood pressure but it is not treated currently. She does not smoke and does not have strong family history of heart disease. She did have knee surgery in March. Denies other surgery or trauma. Timing/Duration: changing over time, 2-3 days Severity/Quality: mild, moderate, pressure Location: shoulder, back, other (Left arm) Radiation: arms (Left) Activities at Onset: none Prior CP/Workup: no prior cardiac workup ASA po CHAIN SPLITTER: No NTG SL CHAIN SPLITTER: No Associated Symptoms: No abdominal pain; back pain; No diaphoresis; dizziness; No nausea/vomiting, No shortness of breath, No weakness Allergies and Home Medications Allergies Coded Allergies: Penicillins (Verified Allergy, Unknown, childhood allergy, 05/08/18) Patient Home Medication List Home Medication List Reviewed: Yes Atorvastatin Calcium (Atorvastatin Calcium) 20 Mg Tablet, (Reported) Entered as Reported by: MILY CARREON on 07/05/21 4798 Last Action: New Order Discontinued Medications Multivit with Calcium,Iron,Min (Women's Daily Formula) 1 Each Tablet, 1 EACH PO DAILY, (Reported) Discontinued Reason: No Longer Taking Entered as Reported by: KALYAN CISNEROS on 05/08/181551 Last Action: Discontinued Norgestimate-Ethinyl Estradiol (Sprintec 28 Day Tablet) 1 Each Tablet, 1 EACH PO DAILY, (Reported) Discontinued Reason: No Longer Taking Entered as Reported by: KALYAN CISNEROS on 05/08/18 634 Last Action: Discontinued Oxycodone HCl/Acetaminophen (Percocet 5-325 mg Tablet) 1 Each Tablet, 1 EACH PO Q4H PRN for PAIN-MODERATE Discontinued Reason: No Longer Taking Prescribed by: ARGELIA WAN on 05/11/18 1421 Last Action: Discontinued Review of Systems Review of Systems Constitutional: see HPI; No chills, No fever EENTM: No Nose Congestion, No Throat Pain Respiratory: Denies Cough, Denies Shortness of Air Cardiovascular: Chest Pain, Edema Gastrointestinal: Denies Abdominal Pain; Constipated; Denies Diarrhea, Denies Nausea, Denies Vomiting Genitourinary: No Symptoms Reported Musculoskeletal: see HPI, joint pain, muscle pain Skin: No change in color, No lesions Psychiatric/Neurological: Anxiety (About current situation); Denies Weakness All Other Systems Reviewed Negative Unless Noted: Yes Past Menxjre-Hukmly-Plwnzf Hx Patient Social History Tobacco Use?: No Substance use?: No Alcohol Use?: Yes Alcohol Frequency: Once in a while Pt feels they are or have been: No Immunizations Up To Date First/Initial COVID19 Vaccinat: 09/20 Second COVID19 Vaccination Tristin: 10/18 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[email or web address] Seasonal Allergies Seasonal Allergies: No Past Medical History Surgery/Hospitalization HX: LEFT KNEE ARTHROSCOPY Surgeries: Yes Hysterectomy, Tubal Ligation Respiratory: Yes Sleep Apnea Currently Using CPAP: Yes Cardiac: Yes High Cholesterol, Hypertension Neurological: No Reproductive Disorders: Yes Gastrointestinal: No Musculoskeletal: No Family Medical History Reviewed Nursing Family Hx No Pertinent Family Hx Physical Exam Vital Signs Vital Signs - First Documented 07/05/21 04:36 Temp 36.0 Pulse 100 Resp 18 B/P (MAP) 157/89 (111) Pulse Ox 97 O2 Delivery Room Air Capillary Refill : Less Than 3 Seconds Height, Weight, BMI Height: 5'8.00" Weight: 286lbs. 0.0oz. 129.686898kj; 43.00 BMI Method: General Appearance: No Apparent Distress, WD/WN, Obese HEENT: PERRL/EOMI, Pharynx Normal Neck: Non Tender, Supple Respiratory: Lungs Clear, Normal Breath Sounds Cardiovascular: Regular Rate, Rhythm, No Murmur Gastrointestinal: Non Tender, Soft, Other Extremity: Normal Range of Motion, Other (Mild tenderness proximal bicep and shoulder which is somewhat similar to the pain that she is having.) Neurologic/Psychiatric: Alert, Oriented x3 Skin: Normal Color, Warm/Dry Progress/Results/Core Measures Results/Orders Lab Results Laboratory Tests Test 07/05/21 04:45 Range/Units White Blood Count 6.5 4.3-11.0 10^3/uL Red Blood Count 4.87 3.80-5.11 10^6/uL Hemoglobin 12.6 11.5-16.0 g/dL Hematocrit 41 35-52 % Mean Corpuscular Volume 83 80-99 fL Mean Corpuscular Hemoglobin 26 25-34 pg Mean Corpuscular Hemoglobin Concent 31 L 32-36 g/dL Red Cell Distribution Width 13.6 10.0-14.5 % Platelet Count 298 130-400 10^3/uL Mean Platelet Volume 9.6 9.0-12.2 fL Immature Granulocyte % (Auto) 0 % Neutrophils (%) (Auto) 51 42-75 % Lymphocytes (%) (Auto) 39 12-44 % Monocytes (%) (Auto) 8 0-12 % Eosinophils (%) (Auto) 2 0-10 % Basophils (%) (Auto) 1 0-10 % Neutrophils # (Auto) 3.3 1.8-7.8 10^3/uL Lymphocytes # (Auto) 2.5 1.0-4.0 10^3/uL Monocytes # (Auto) 0.5 0.0-1.0 10^3/uL Eosinophils # (Auto) 0.1 0.0-0.3 10^3/uL Basophils # (Auto) 0.0 0.0-0.1 10^3/uL Immature Granulocyte # (Auto) 0.0 0.0-0.1 10^3/uL Prothrombin Time 13.6 12.2-14.7 SEC INR Comment 1.0 0.8-1.4 Activated Partial Thromboplast Time 31 24-35 SEC D-Dimer < 0.27 0.00-0.49 UG/ML Sodium Level 141 135-145 MMOL/L Potassium Level 3.9 3.6-5.0 MMOL/L Chloride Level 106 98-107 MMOL/L Carbon Dioxide Level 24 21-32 MMOL/L Anion Gap 11 5-14 MMOL/L Blood Urea Nitrogen 12 7-18 MG/DL Creatinine 0.84 0.60-1.30 MG/DL Estimat Glomerular Filtration Rate 72 BUN/Creatinine Ratio 14 Glucose Level 102 70-105 MG/DL Calcium Level 8.6 8.5-10.1 MG/DL Corrected Calcium 8.8 8.5-10.1 MG/DL Magnesium Level 2.0 1.6-2.4 MG/DL Total Bilirubin 0.7 0.1-1.0 MG/DL Aspartate Amino Transf (AST/SGOT) 13 5-34 U/L Alanine Aminotransferase (ALT/SGPT) 16 0-55 U/L Alkaline Phosphatase 89 40-136 U/L Myoglobin 32.9 10.0-92.0 NG/ML Troponin I < 0.028 <0.028 NG/ML Total Protein 6.9 6.4-8.2 GM/DL Albumin 3.8 3.2-4.5 GM/DL Lipase 33 8-78 U/L My Orders Orders - CORTEZ ORLANDO MD Cbc With Automated Diff (07/05/21 04:59) Magnesium (07/05/21 04:59) Chest 1 View, Ap/Pa Only (07/05/21 04:59) Ekg Tracing (07/05/21 04:59) Comprehensive Metabolic Panel (07/05/21 04:59) Myoglobin Serum (07/05/21 04:59) Protime With Inr (07/05/21 04:59) Partial Thromboplastin Time (07/05/21 04:59) O2 (07/05/21 04:59) Monitor-Rhythm Ecg Trace Only (07/05/21 04:59) Lipid Panel (07/06/21 06:00) Ed Iv/Invasive Line Start (07/05/21 04:59) Lipase (07/05/21 04:59) Fibrin Degradation Products (07/05/21 04:59) Troponin I [place] (07/05/21 04:59) Aspirin Chewable Tablet (Baby Aspirin Ch (07/05/21 05:00) Ketorolac Injection (Toradol Injection) (07/05/21 04:59) Medications Given in ED Current Medications Medications Dose Ordered Sig/Jessica Route Start Time Stop Time Status Last Admin Dose Admin Aspirin 324 mg ONCE ONCE PO 07/05/21 05:00 07/05/21 05:01 DC 07/05/21 05:06 324 MG Vital Signs/I&O 07/05/21 04:36 Temp 36.0 Pulse 100 Resp 18 B/P (MAP) 157/89 (111) Pulse Ox 97 O2 Delivery Room Air Blood Pressure Mean: 111 Progress Progress Note : Progress Note Seen and evaluated. IV, labs, EKG and chest x-ray ordered. ASA 324 mg p.o. Toradol 30 mg IV. Monitor patient. 0612: Overall doing a little better. Labs do not show any significant abnormalities. I did discuss follow-up. Discharged home with return precautions. Patient verbalized understanding of instructions and agreement with plan. Initial ECG Impression Date: Jul 05, 2021 Initial ECG Impression Time: 04:40 Initial ECG Rhythm: Normal Sinus Comment Sinus rhythm with nonspecific interventricular conduction delay. Normal axis. No evidence of ST elevation NC. Interpreted by me. Diagnostic Imaging Diagonstic Imaging: Xray Plain Films/CT/US/NM/MRI: chest Comments NAME: ALTON ANTONIO MED REC#: [id number] PT STATUS: REG ER : 1970 PHYSICIAN: CORTEZ ORLANDO MD ADMIT DATE: 07/05/21/ER Draft Date of Exam:07/05/21 CHEST 1 VIEW, AP/PA ONLY INDICATION: Chest pain COMPARISON: None FINDINGS: Single frontal view of the chest demonstrates normal heart size and pulmonary vascularity. The lungs are well aerated and clear. No large pleural effusion or pneumothorax is seen. The visualized osseous structures show no acute abnormalities. IMPRESSION: 1. No acute cardiopulmonary process. Dictated on workstation # [id number] Dict: 07/05/21 0541 Trans: 07/05/21 0544 [facility] [id number] Interpreted by: AKBAR SHEARER MD Electronically signed by: Reviewed: Reviewed by Me Departure Impression Primary Impression: Chest wall pain Additional Impression: Left shoulder pain Qualified Codes: M25.512 - Pain in left shoulder Disposition: 01 HOME, SELF-CARE Condition: Improved Departure-Patient Inst. Decision time for Depature: 06:13 Referrals: BONNY DUFF MD FACP FAC CCDS WALLY MAGAÑA MD, JUSTIN S MD PETERS, SUZANNE D APRN (PCP) Primary Care Physician FAITH VILLAGOMEZ JR, MD NAJERA,YENY Wilburn MD Patient Instructions: Chest Pain (DC), Shoulder Pain ED Add. Discharge Instructions: All discharge instructions reviewed with patient and/or family. Voiced understanding. You should follow-up with the [facility] [employer] listed or of your choosing within the next 1 to 2 weeks. You may also consider following up with orthopedic physician to evaluate your shoulder further. You should take baby aspirin 81 mg daily until seen by the [facility]. You may take ibuprofen and/or Tylenol as needed for pain per package directions for the shoulder pain. Return for worse pain, vomiting, weakness, dizziness, sweating, chest pain, breathing problems or other concerns as needed. CORTEZ ORLANDO MD Jul 05, 2021 05:08
[2021-07-05 05:15] LABS: BASOPHILS % (AUTO) 1 % (0-10); EOSINOPHILS # (AUTO) 0.1 10^3/uL (0.0-0.3); EOSINOPHILS % (AUTO) 2 % (0-10); HEMATOCRIT 41 % (35-52); HEMOGLOBIN 12.6 g/dL (11.5-16.0); LYMPHOCYTES # (AUTO) 2.5 10^3/uL (1.0-4.0); LYMPHOCYTES % (AUTO) 39 % (12-44); MEAN CORPUSCULAR HEMOGLOBIN 26 pg (25-34); MEAN CORPUSCULAR HGB CONC 31 g/dL (32-36); MEAN CORPUSCULAR VOLUME 83 fL (80-99); MEAN PLATELET VOLUME 9.6 fL (9.0-12.2); MONOCYTES # (AUTO) 0.5 10^3/uL (0.0-1.0); MONOCYTES % (AUTO) 8 % (0-12); NEUTROPHILS # (AUTO) 3.3 10^3/uL (1.8-7.8); NEUTROPHILS % (AUTO) 51 % (42-75); PLATELET COUNT 298 10^3/uL (130-400); WHITE BLOOD COUNT 6.5 10^3/uL (4.3-11.0)
[2021-07-05 05:16] LABS: ALBUMIN 3.8 GM/DL (3.2-4.5); POTASSIUM 3.9 MMOL/L (3.6-5.0)
[2021-07-05 05:18] LABS: CALCIUM 8.6 MG/DL (8.5-10.1)
[2021-07-05 05:19] LABS: TOTAL PROTEIN 6.9 GM/DL (6.4-8.2)
[2021-07-05 05:21] LABS: BILIRUBIN,TOTAL 0.7 MG/DL (0.1-1.0); PROTHROMBIN TIME PATIENT 13.6 SEC (12.2-14.7)
[2021-07-05 05:23] LABS: CREATININE SERUM 0.84 MG/DL (0.60-1.30)
--- NOTE | 2021-07-05 05:45 | Diagnostic Imaging Report ---
INDICATION: Chest pain COMPARISON: None FINDINGS: Single frontal view of the chest demonstrates normal heart size and pulmonary vascularity. The lungs are well aerated and clear. No large pleural effusion or pneumothorax is seen. The visualized osseous structures show no acute abnormalities. IMPRESSION: 1. No acute cardiopulmonary process. Dictated by: Dictated on workstation # [id number]
[2021-07-05 06:20] VITALS: BP 135/79
== END 2021-07-05 06:23 | disposition home or self-care (01) ==
LOC: EDUNIT# 04:26 → ER 04:30
DX: R07.89 Other chest pain (principal); M25.512 Pain in left shoulder; G47.30 Sleep apnea, unspecified; I10 Essential (primary) hypertension; E78.00 Pure hypercholesterolemia, unspecified; E66.9 Obesity, unspecified; Z68.41 Body mass index [BMI] 40.0-44.9, adult
CPT/HCPCS: 36415; 71045; 80053; 83690; 83735; 83874; 84484; 85025; 85379; 85610; 85730; 93005; 93041

== ENCOUNTER → 2022-09-01 | Outpatient (CLI) | payer BC ==
[~2022-09-01] MED LIST changes: +ATOR20TA66
--- NOTE | 2022-09-01 18:33 | Diagnostic Imaging Report ---
PROCEDURE: US Thyroid. TECHNIQUE: Multiple real-time grayscale images were obtained of the thyroid in various projections. INDICATION: Abnormal lab studies. FINDINGS: Right thyroid lobe measures 4.8 cm and the left lobe 4.6 cm. Left lobe contains a minute hypoechoic likely partly cystic nodules of 4 mm and 3 mm as benign findings. No abnormal vascularity. The right lobe is homogeneous and unremarkable. IMPRESSION: Tiny subcentimeter benign-appearing left lobe nodular foci. No suspicious mass. No further workup needed. Dictated by: Dictated on workstation # [id number]
== END ==
LOC: RAD 15:15
PROVIDERS: ATTEND Registered Nurse
DX: R79.89 Other specified abnormal findings of blood chemistry (principal); R22.1 Localized swelling, mass and lump, neck
CPT/HCPCS: 76536